=== PATIENT | male | born 1985 | race Caucasian/White ===

== ENCOUNTER 2017-11-28 09:06 | Emergency (ER) | payer OTHER, SELFPAY ==
[2017-11-28 09:07] VITALS: BP 155/105; PULSE 99; RESP 14; TEMP 36.3; O2SAT 95; BMI 38.8
--- NOTE | 2017-11-28 09:26 | ED.DCSUM_ITS ---
- ER Visit Summary Date of Service: 11/28/17 Chief Complaint: Suicidal History of Present Illness: The patient is a 32 M with worsening depression and anxiety over the past several months. Patient admits to having suicidal ideation for quite a while now. He has thoughts about driving off a bridge when he is driving, drowning in a pool, or taking a bottle pills. Patient states last week he actually sat on the edge of the pool but not jumping. He is having difficulty working because of his anxiety depression and went to see his primary care physician today about FMLA leave. He was sent to the ER by his PCP. Patient has been seeing a psychologist in [place] for the symptoms. He is not currently on any medication. Physical Examination: Blood pressure is 155/105, otherwise vitals normal. Patient standing at the side of the bed. Head neck examination is unremarkable. Heart is regular rate and rhythm. Lung sounds are clear. Abdomen is soft nontender. Psychiatric evaluation reveals depressed affect and suicidal thoughts. He has poor eye contact and speaks in a quiet voice. Test Results: CBC and chemistry studies are grossly unremarkable. His glucose is 153. Tox and EtOH are negative. Emergency Department Course and Treatment: Patient's been cooperative throughout his stay. Counselor from crisis center presented. After discussing the case with her we both have concerns about his impulsiveness and feel he would be much better served to be placed for inpatient treatment. Patient is given 1 mg of p.o. Ativan for anxiety. Treatment Plan: [] Disposition: Transfer Impression: Suicidal ideation This note was generated with [employer] dictation software. It may contain incorrect words, spelling, and punctuation that were not noted in review of the chart prior to signing ED Disposition - Plan for ED Patient: Chief Complaint: Suicidal
[2017-11-28 10:00] LABS: Absolute Lymphocyte Count 2.22 X10^3/ul (0.83-4.51); Absolute Neutrophil Count 4.9 X10^3/uL (2.0-7.7); Basophil# 0.05 X10^3/uL; Basophil% 0.6 % (0-1); Eosinophil# 0.15 X10^3/uL; Eosinophils% 1.9 % (0-5); Hematocrit 46.2 % (40-54); Hemoglobin 16.2 g/dl (13.0-16.5); Lymphocyte # 2.22 X10^3/ul (4.0); Lymphocyte % 28.8 % (19-41); Mean Corp Hgb Conc 35.1 g/gl (32-36); Mean Corpuscular Hgb 29.5 pg (27.0-32.0); Mean Platelet Vol. 9.7 fl (6.2-12.0); Monocyte# 0.42 X10^3/uL; Monocyte% 5.4 % (0-10); Neutrophil # 4.86 X10^3/uL (2.7-7.7); Neutrophil % 63.2 % (47-70); Platelet Count 227 K/mm3 (150-450); RBC Distribution Width CV 12.4 % (11.6-14.6); RBC Distribution Width SD 37.7 fl (35.1-43.9); White Blood Count 7.7 K/mm3 (4.4-11.0)
[2017-11-28 10:01] LABS: POSITIVE COUNT NO; POSITIVE DIFFERENTIAL NO; POSITIVE MORPHOLOGY NO
[2017-11-28 10:23] LABS: Anion Gap 5 (5-15); BUN 11 mg/dL (7-18); BUN/Creat Ratio 13.4 RATIO (10-20); Calcium,Total 9.1 mg/dL (8.5-10.1); Chloride 106 mmol/L (98-107); Creatinine, Serum 0.82 mg/dL (0.70-1.30); EST Glomerular Filtration Rate 116 mL/min (>60); Est Glom Filt Rate - Afr Amer 140 mL/min (>60); Estimated Creatinine Clearance 133.54 ml/min; Glucose 153 mg/dL (74-106); Potassium 4.2 mmol/L (3.5-5.1); Sodium Level 139 mmol/L (136-145)
[2017-11-28 10:35] LABS: Amphetamine Urine VISTA NEGATIVE (<1000 ng/mL); Barbiturate Urine VISTA NEGATIVE (< 200 ng/mL); Benzodiazepine Urine VISTA NEGATIVE (< 200 ng/mL); Cocaine Urine VISTA NEGATIVE (< 300 ng/mL); Ecstacy Urine VISTA NEGATIVE (< 500 ng/mL); Methadone Urine VISTA NEGATIVE (< 300 ng/mL); PCP Urine VISTA NEGATIVE (< 25 ng/mL); THC Urine VISTA NEGATIVE (< 50 ng/mL); Vista UDS pH Range 6
--- NOTE | 2017-11-28 10:52 | ED.RN ---
CALLED [facility] TO SEE PATIENT. [facility] INFORMED US THAT THEY ONLY HAVE ONE COUNSELOR ON TODAY AND SHE IS AT [facility]. SHE COULD NOT GIVE A TIME FRAME TO WHEN SOMEONE WOULD BE OVER.
[2017-11-28 14:55] VITALS: PULSE 89; RESP 18; O2SAT 96
[2017-11-28] MEDS: LORazepam 1 MG Tablet PO (15:32)
[2017-11-28 16:17] VITALS: BP 131/81; PULSE 88; RESP 14; O2SAT 96
--- NOTE | 2017-11-28 16:21 | ED.RN ---
FIRST ATTEMPT MADE TO CALL REPORT. TOLD TO CALL BACK DUE TO NURSE PASSING MEDS. Jose Miguel VAIL, RN [phone]
--- NOTE | 2017-11-28 16:39 | NURSING ---
[facility] CALLED FOR TRANSPORT. NOT AVAILABLE TILL 1999. PATIENT INFORMED AND FACILITY NOTIFIED. Jose Miguel VAIL RN.
[2017-11-28 17:42] VITALS: RESP 16
[2017-11-28 19:56] VITALS: BP 128/76; PULSE 80; RESP 16; O2SAT 98
== END 2017-11-28 19:57 ==
PROVIDERS: Emergency Provider Emergency Medicine; Family Provider Family Medicine; PCP Family Medicine
DX: R45.851 Suicidal ideations (principal); F32.9 Major depressive disorder, single episode, unspecified; F41.9 Anxiety disorder, unspecified; I10 Essential (primary) hypertension; E11.9 Type 2 diabetes mellitus without complications
CPT/HCPCS: 36415; 80048; 80307; 80320; 85025; 99284; G0480

== ENCOUNTER 2017-12-12 09:00 | Outpatient (RCR) | payer OTHER, SELFPAY ==
--- NOTE | 2017-12-12 09:05 | BH.SGPN.GN ---
Behaviors/Verbalizations/Mental Status: [Client maintained good eye contact throughout, mostly a passive, observatory participant however did well to provide some input to discussion. Client was casually dressed, appropriate grooming/hygiene. Motor activity WNL - some restless movement in chair - taking notes throughout session. Client speech was a normal rate and tone, mood anxious, depressed - expressed as feeling withdrawn, affect congruent with mood, thoughts linear and logical, no evidence of delusions or hallucinations. Therapist reviewed client?s symptom tracker to assess for intensity of mental health symptoms and identify risk for suicide. No signs of suicidal ideation, plan, or intent to date.] Client Response/Progress/Benefit: [Client receptive of session and did well to adjust to group environment. CLient was a passive participant in the group discussion as this was Client first day in IOP program and he was still getting used to the group setting. CLient did well to remain engaged throughout despite limited feedback to others AEB CLient taking notes throughout session and willingness to discuss what led to admission to IOP program as well as treatment goals/expectations. CLient indicated that he has been feeling increasingly anxious and withdrawn in his own life and is hoping to find strategies for improving his overall management of current mental health symptoms. CLient discussed recently beginning a new medication which he has been trying to adjust to. He benefited from the supportive group environment and encouragement provided by participants who indicated that if client is open minded and applies the skills he learns in group he will be able to begin seeing improvements in mental health sx. Client recommended continued IOP tx to maintain stability and begin working towards mental health treatment goals client is to identify. ] Narrative Note: []
--- NOTE | 2017-12-12 10:30 | BH.SGPN.GN ---
Behaviors/Verbalizations/Mental Status: []Client alert and oriented, neatly dressed and groomed. Eye contact fair. Motor activity appropriate. Speech quiet. Affect flat, mood anxious. Thoughts linear, logical, no signs of hallucinations or delusions. Client Response/Progress/Benefit: []Client responded well to session, quiet, but engaged as evidence by note-taking. Client reported one can have conflict with others or within oneself. Client nodded in agreement to barriers that prevent resolving conflict such as emotions, body language, and avoidance. Client helped the group discuss the four different conflict resolution styles including when it is helpful and not helpful to use each style. Client shared he uses the collaborating style at work, but he tends to be more accommodating in his personal relationships. Client reported the accommodating type has pros and cons, and one of the pros is client does not feel like his ideas and needs get heard. Client shared he would like to become more collaborative in his personal relationships. Client appeared to benefit from gaining awareness of how client?s current conflict resolution style impacts mental health and relationships. Client?s first day in PHP. Client to continue PHP to prevent decompensation, promote safety, and increase mood stability.
--- NOTE | 2017-12-12 11:35 | BH.SGPN.GN ---
Behaviors/Verbalizations/Mental Status: []Client alert and oriented, neatly dressed and groomed. Eye contact good. Motor activity appropriate. Speech within normal limits. Affect brighter- laughing and smiling with peers, mood depressed, anxious. Thoughts linear, logical, no signs of hallucinations or delusions. Client Response/Progress/Benefit: []Client responded well to session, more vocal and engaged than previous group session. Client participated in the group activity, passive at times, but sharing his thoughts and ideas in an assertive manner when prompted by therapist. Client stated listening to others, having fun, and problem-solving positively impacts conflict resolution. Client helped the group identify strategies to more effectively manage conflict such as managing stress, focusing on one problem at a time, and challenging negative self-talk. Client?s first day in PHP so no progress to document. Client to continue PHP to prevent decompensation, increase mood stability, and promote healthy coping skills.
--- NOTE | 2017-12-12 12:02 | BH.COMM ---
Communication Note - Communication with Client Communication Note: completed intial paperwork. No significant changes since pre-admission screening. Denies any suicidal ideations since last visit. No risk or concerns noted. Appears motivated to start PHP
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
--- NOTE | 2017-12-12 14:45 | BH.MDN ---
Multi-Disciplinary Note - Note 45-min Individual Time Started:: 12:31 Date: 12/12/17 Purpose of session/treatment goals addressed:: Purpose of session was to assess pt's current symptoms and stressors. Other topics included reviewing how first day of PHP went, gathering background information and identifying PHP treatment goals. Eye Contact:: Good Motor Activity:: Appropriate Appearance:: Casual Speech:: Appropriate Mood:: Anxious Affect:: Congruent Thoughts:: Linear, Logical, No evidence of hallucinations/delusions noted Staff Interventions:: Therapist used open ended questions to elicit pt's current symptoms and stressors. Therapist used probing questions to elicit background information. Therapist elicited pt's thoughts and feelings about program thus far. Worked collaboratively with pt to identify treatment goals for PHP. Psychoeducation provided about cognitive triangle, helping pt understand connection between thoughts, feelings, and behavior. Provided pt with homework to keep a thought log throughout rest of day. Client Response:: Pt reported he was anxious throughout his first day in PHP, but overall thought the day wasn't as bad as expected. Pt shared he believes it will become easier to participate as he becomes comfortable with others. Pt reported he started the PHP program after being referred by the inpatient hospital he went to due to suicidal ideation. Pt shared he noticed his mental health symptoms were worsening in April after interpersonal relationship issues. Pt reported his anxiety and depression increased and was started to struggle in other areas of his life. Pt shared end of October he went to his PCP for medication refill and to receive a leave of absence from work because work was overwhelming and he couldn't complete his basic daily responsibilities. Pt shared during the appointment with his PCP inpatient hospitalization was recommended due to increased suicidal thoughts at the time. Pt reported he went to [place] that day and was referred to this program after his inpatient stay. Pt shared since being out of inpatient he is no longer feeling suicidal, still experiencing high anxiety and moderate depressive symptoms. Pt reported he is working with his outpatient counselor on childhood trauma through EMDR therapy. Pt shared he would like to focus on increasing his healthy coping for both depression and anxiety. Pt shared he also would find it helpful to have education about impact of trauma. Pt agreeable to complete thought log throughout rest of day. Risks/Concerns:: Pt currently denies suicidal ideation, plan or intention to date. Future-focused. Progress Toward Goals/Plan:: No progress observed given it is pt's first day in PHP. Session focused on gathering backgroud information and establishing goals for PHP. Plan is to meet tomorrow to review assigned homework and practice thought challenge. Time Stopped:: 13:17
--- NOTE | 2017-12-13 10:20 | BH.SGPN.GN ---
Behaviors/Verbalizations/Mental Status: [] Pt eye contact good, casually dressed, motor activity appropriate, speech normal rate and tone, mood euthymic, congruent affect, thoughts linear and intact, no evidence of delusions or hallucinations. Client Response/Progress/Benefit: []Pt tended to be quiet during initial discussion, showed increased engagement when discussing current stressors. Pt identified current stressors to include: mental health issues, side effects from medications, living situation, work problems, interpersonal problems, and adjusting to new medications. Pt reported when he becomes overwhelmed with stress he tends to implode, which he described as increased negative thinking towards self. Pt seemed to benefit from increased awareness of current stressors and how current response to stress negatively impacts his functioning. Narrative Note: []
--- NOTE | 2017-12-13 21:10 | BH.MDN_ITS ---
Multi-Disciplinary Note - Note 45-min Individual Time Started:: 12:35 Date: 12/13/17 Purpose of session/treatment goals addressed:: Purpose of session was to assess pt's current symptoms and stressors. Other topics included: reviewing homework, reframing negative/anxious thoughts, and education on cognitive distortions. Eye Contact:: Good Motor Activity:: Appropriate Appearance:: Casual Speech:: Appropriate Mood:: Anxious Affect:: Congruent Thoughts:: Linear, Logical, No evidence of hallucinations/delusions noted Staff Interventions:: Therapist used open ended questions to elicit pt's current symptoms and stressors. Therapist reviewed pt's homework from previous group session. Therapist assisted pt with reframing negative thoughts, helping pt see connection between thoughts, feelings and behavior. Therapist provided psychoeducation about cognitive distortions, explaining impact distorted thought patterns can have on mental health. Therapist provided pt with worksheet about identifying physical, cognitive and behavioral impact of anxiety for homework. Provided support by active listening and validating emotions. Client Response:: Pt reported yesterday he took a nap after group because believes his new medication is making him more groggy. Pt shared after his nap he went to the store and bought painting supplies so he can paint his room. Pt reported he is excited to paint his room so he has a more relaxing space of his own. Pt completed his homework of keeping a thought log. Pt shared one of his negative thoughts to be I'm an idiot for taking on this paint project it was too much. With assistance pt reframed the thought to if I break up the paint project into manageable parts it will actually give me something positive to do each day. Pt shared another negative thought he had was I'm never going to get back to my normal self. Pt reframed to his thought to I'm uncertain if I will get back to my normal self. Pt shared although the new thought didn't take away his feeling of anxiety, he recognizes by removing the word never does give him more hope. Pt also connected with the 10 different cognitive distortions reviewed during session. With assistance pt connected in the 3 thoughts he trac ked he used several of the distorted thoughts. Pt agreeable to complete homework of getting to know his anxiety better. Risks/Concerns:: Pt denies suicidal thoughts, plan or intention to date. Future focused. Progress Toward Goals/Plan:: Pt showing progress with increased awareness of his negative thought patterns and following through on identified goals. Pt continuing to report not having any suicidal thoughts. Pt continuing to experience high anxiety, but showing increased awareness of how his thought patterns can exasperate his symptoms. Pt to continue PHP level of care to stabilize moods, improve daily functioning, and prevent decompensation. Time Stopped:: 13:15
--- NOTE | 2017-12-14 09:00 | BH.SGPN.GN ---
Behaviors/Verbalizations/Mental Status: [] Alert and oriented. Eye contact is good. Motor activity is appropriate. Appearance is casual. Speech is appropriate. Mood is anxious. Affect is congruent. Thoughts are linear and logical. No hallucination or delusions noted. Client Response/Progress/Benefit: [] Pt was quiet unless prompted. Shared with the group that his emotion today was anxious. No trigger reported stating that his anxiety is constant. He described learning recently about cognitive distortions and CBT therapy and is hopeful that he will learn better ways to combat his negative thoughts which are continues throughout the day. Group provided support and offered some suggestions and strategies. He discussed how this anxiety effects his daily functioning. Benefited from support and feedback from peers. Appears to relate to other in the group which decreases stigma associated with recent psychiatric hospitalization. Progress noted in regards to awareness. Will continue in PHP to maintain safety, improve functioning, and stabilize mood. Narrative Note: []
--- NOTE | 2017-12-14 10:15 | BH.SGPN.GN ---
Behaviors/Verbalizations/Mental Status: []Client alert and oriented, neatly dressed and groomed. Eye contact fair. Motor activity appropriate. Speech within normal limits. Affect constricted, mood anxious. Thoughts linear, logical, no signs of hallucinations or delusions. Client Response/Progress/Benefit: []client responded well to session, passive participant. Client listened to discussion of how emotions impact how a person manages change. Client agreed with peers through nodding, that emotions such as anger, stress, and anxiety can lead to avoidance of change. Client appeared to benefit from gaining awareness of how emotions can either promote change or hinder change. Progress noted in client?s increased mental health awareness, but he can continue to benefit from increasing application of healthy coping skills.
--- NOTE | 2017-12-14 11:20 | BH.SGPN.GN ---
Behaviors/Verbalizations/Mental Status: []Client alert and oriented, neatly dressed and groomed. Eye contact good. Motor activity appropriate. Speech within normal limits. Affect constricted, mood anxious. Thoughts linear, logical, no signs of hallucinations or delusions. Client Response/Progress/Benefit: []Client responded well to session, engaged throughout. Client participating in the group activity, sharing ?you have to be realistic with your goals? when taking steps to change. The group identified learning from mistakes and reaching out to supports as strategies to improve the change process and overcome change barriers. Client shared he has experienced positive change in the past and knows he can again. ?Client identified improving his personal relationships as a positive change he wants to make. Client appeared to benefit from setting a goal to help client make positive change. Client to continue IOP to increase mood stability and prevent decompensation.
--- NOTE | 2017-12-15 10:10 | BH.SGPN.GN ---
Behaviors/Verbalizations/Mental Status: [] Pt eye contact good, casually dressed, motor activity appropriate, speech normal rate and tone, mood euthymic, congruent affect, thoughts linear and intact, no evidence of delusions or hallucinations. Client Response/Progress/Benefit: [] Client active spent as evidenced by any contribution throughout discussion and attentive to others. Client could relate to the that there are things he does that contributes to him feeling stuck and not moving forward. Client stated although he cannot identify external situations that are not in his control which have impacted his progress as well. Client identified various thoughts that contribute to him staying stuck to include: I am not intelligent enough to solve problems, I am not interesting enough, and I should have more interesting things I do. Client seemed to benefit from increased awareness of cognitive triangle as well as connecting how his own thoughts impact his ability to move forward. Narrative Note: []
--- NOTE | 2017-12-15 11:10 | BH.SGPN.GN ---
Behaviors/Verbalizations/Mental Status: [] Pt eye contact good, casually dressed, motor activity appropriate, speech normal rate and tone, mood euthymic, congruent affect, thoughts linear and intact, no evidence of delusions or hallucinations. Client Response/Progress/Benefit: [] Client engaged and active throughout group session as evidenced by completing the worksheet together throughout group session and contributing to discussion. Client identified the thought for the worksheet to focus on was I am not intelligent enough to solve her own problems. Client reported that this thought is unrealistic because he can recognize there is evidence contrary to that statement. Client reported this thought with to isolation and shut down, and ultimately this thought results and not working on his problems and no contact with support network. Client able to reframe thought to I am smart enough to break my problems into smaller manageable parts. Client reported by reframing his negative thought to more positive and optimistic thought would lead to decrease isolation, increased hopefulness, increased self worth and increase self-esteem. Client seemed to benefit from practicing reframing and negative thought and seeing the positive impact challenging negative thoughts can have. Narrative Note: []
--- NOTE | 2017-12-15 14:19 | BH.MDN_ITS ---
Multi-Disciplinary Note - Note 30-min Individual Time Started:: 12:30 Date: 12/14/17 Purpose of session/treatment goals addressed:: Purpose of session was to assess current symptoms and stressors. Other topcis: review homework from previous session and brief discussion about common types of anxious thoughts. Eye Contact:: Good Motor Activity:: Appropriate Appearance:: Casual Speech:: Appropriate Mood:: Anxious Affect:: Congruent Thoughts:: Linear, Logical, No evidence of hallucinations/delusions noted Staff Interventions:: Therapist utilized open ended questions to elicit pt's current symptoms and stressors. Therapist reviewed pt's homework from previous indicidual session. Therapist provided psychoeducation about importance of having awareness of physiological response to anxiety. Therapist provided pt with homework to read about common types of anxiety. Client Response:: Pt reported he is feeling more comfortable in group and has improved energy today. Pt shared he was able to complete the homework of how he experiences anxiety physiologically, cognitively, and behaviorally. Pt reported he found it helpful to gain awareness of how his anxiety impacts him and have the language to be able to describe his experience more effectively. Pt reported he was able to complete his goal for the day yesterday of continuing to work on his paint project for his room. Pt shared he recognizes the importance of setting small, manageable goals to make his project not become overwhelming. Pt agreeable to complete the worksheet for homework. Risks/Concerns:: Pt denies currently suicidal ideation, plan or intention to date. Progress Toward Goals/Plan:: Pt demonstrating progress with increased self- awareness of his anxious thought patterns and improved awareness of how his anxiety is impacting his functioning. Pt also showing progress with identifying and following through with identified daily goals. Pt continuing to maintain safety and report no suicidal thoughts. Pt to continue PHP level of care to maintain gains, improve daily functioning, and prevent decompensation. Time Stopped:: 13:05
--- NOTE | 2017-12-15 14:19 | BH.MDN ---
Multi-Disciplinary Note - Note 45-min Individual Time Started:: 12:15 Date: 12/15/17 Purpose of session/treatment goals addressed:: Purpose of session was to assess pt's current symptoms and stressors. Other topics included: reviewed homework, safety plan, tentative plan for PHP discharge. Eye Contact:: Good Motor Activity:: Appropriate Appearance:: Casual Speech:: Appropriate Mood:: Anxious Affect:: Congruent Thoughts:: Linear, Logical, No evidence of hallucinations/delusions noted Staff Interventions:: Therapist used open ended questions to elicit pt's current symptoms and stressors. Therapist reviewed pt's homework assignment from previous individual session. Therapist worked with pt to complete safety plan. Therapist elicited pt's thoughts about progress since starting PHP, discussed tentative discharge plan. Client Response:: Client reported he is feeling a bit overwhelmed because he has to complete a lot of paperwork for his insurance and wants to continue to move forward with his paint project. Client shared he does not think he got enough done for his pain project yesterday which results in increased negative thinking and anxious thoughts that he took on too much at once. Client able to reframe thought, using the reframe thought created during individual session yesterday. Client completed the assigned homework of reading about common anxious thought patterns. Client connected with the what if's and inner critic thoughts. Client able to identify several what of thoughts and recognized his thoughts from today's group session fall under the inner critic. Client could connect the impact is anxious thought patterns have on his behavior and emotions. Client worked cooperatively with therapist to start completing his safety plan. Client identified his main warning signs that he is starting to struggle to include feeling guilt, fear, and extreme worry. Client identified coping skills to help him include humor, doing something else, coloring, and prayer. Client reported positive thoughts that can help him get through tough times include remind himself this will pass and remind himself that he is gone through to situations in the past. Client reported he has seen progress in himself with increased self awareness, completing small tasks daily, and continuing to not feel suicidal. Client agreeable his last day in partial hospitalization to be tomorrow. Client reported he will start IOP on Tuesday of next week. Risks/Concerns:: Patient denies current suicidal thoughts, plan, or intention. Future focused. Progress Toward Goals/Plan:: Client has demonstrating progress with increased awareness of negative and anxious thought patterns, improved ability to reframe negative thoughts, and completing small goals established each day. Client has been able to maintain safety, reports not experiencing any suicidal thoughts, and has improved mood stability. Plan is for client to discharge from [facility] tomorrow. Client will start IOP level of care on Tuesday of next week. Time Stopped:: 13:05
--- NOTE | 2017-12-16 09:10 | BH.SGPN.GN ---
Behaviors/Verbalizations/Mental Status: []Client alert and oriented, neatly dressed and groomed. Eye contact good. Motor activity appropriate. Speech within normal limits. Affect congruent, mood anxious, euthymic. Thoughts linear, logical, no signs of hallucinations or delusions. Reviewed client?s symptom tracker, client marked 1 out of 5 for thoughts of suicide and 0 out 5 for intent. Therapist to communicate this with client's individual therapist. Client Response/Progress/Benefit: []Client responded well to session, providing supportive statements to peers. Client reports feeling ?conflicted? today as client is hopeful based on the progress he has made, but client continues to struggle with managing stressors and feeling overwhelmed. Client shared receiving a rejection letter from his insurance company as a major stressor. Client stated he has been challenging the anxious, negative thoughts with his [facility] therapist which has been helpful. Client was also receptive to ideas from peers on ways to manage stress. Client identified accessing his email and getting caught up on work stuff as a current positive. Client appeared to benefit from giving and receiving support in the group. Client to discharge from [facility] today as he has made progress and no longer meets criteria for that level of care. Client to start [facility] 12/19/17.
--- NOTE | 2017-12-16 12:44 | PCM.HP.BLA ---
History and Physical Identifying information Patient is a 32-year-old male status post recent inpatient psychiatric hospitalization with new diagnosis bipolar disorder who presents to the behavioral medicine [facility] with chief complaint of recent mood instability and thoughts of harming myself. History is been obtained per interview with patient, discussion with staff, review of chart. Records reviewed including November 28, 2017 history and physical from [facility] and discharge medication summary from [facility]. Case discussed with treatment team History of present illness Patient is a 32-year old male status post recent inpatient psychiatric hospitalization November 29 - December 05 at [facility] for hypomania with suicidal ideation. Patient was newly diagnosed with bipolar disorder during his inpatient hospitalization. He describes history consistent with mixed mood symptoms and mood cycling. April - August 2017 he reports mixed mood symptoms with depression, sleep disruption and productivity. In August he began having personal relationship problemswhich he further believes exacerbated his symptoms. He reports between August and November he was hypomanic with feeling amped up, increased energy, increased productivity, getting a lot of things done, sleeping only 5 hours reduced from his normal 7-8 hours, impulsive behavior including spending and dating websites, narcissistic thoughts and irritability. Prior to his hospitalization he had increased depression with guilt, hopelessness, feelings of worthlessness and suicidal thoughts. He reports thoughts of drowning or overdosing. He has had only one fleeting suicidal thoughts since discharge from the hospital lasting less than 1 minute. He denies suicide plan or intent. Denies access to firearms. Feels able to maintain safety. Denies homicidal ideation. Denies hallucinations. Reports that he is currently sleeping 7-8 hours and that Abilify has assisted with sleep. Appetite is mildly increased. He endorses ruminative anxiety about multiple issues. He has panic attacks in social situations which she has shortness of breath heart palpitations and diaphoresis. His last panic attack was prior to his hospitalization. He denies obsessions or compulsions. Denies history of disordered eating. 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 Past psychiatric history Recent diagnosis bipolar disorder. Previous diagnosis of anxiety and PTSD. One psychiatric inpatient hospitalization at [facility] from November 29 - December 05 as noted above. Currently sees Preethi Garcia at [facility]. Reports trial of Risperdal as a teen for anxiety. Substance use history Consumes 2 alcoholic drinks per week. Denies illicit drug use. Denies smoking. 2 cups of caffeinated coffee daily. Past medical history Irx-eyaubcy-ippshecox diabetes Denies history of seizure or head injury Review of systems Reports some congestion likely due to seasonal allergies. No fevers chills chest pain or dyspnea. All other systems reviewed and negative except as above. Allergies-no known medical allergies Current medications Metformin Lisinopril Abilify 20 mg daily Family medical psychiatric history Father-bipolar disorder Maternal grandmother-schizophrenia Paternal grandfather alcohol use Developmental social history Patient was born and raised in [facility]. He is the eldest of 2 children. 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 States that growing up was difficult as his father had untreated bipolar disorder and was unpredictable. Graduated high school. Attended community college and obtained an associates in [employer] science. 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 Lives with parents in [place]. Relationship with father has improved as father is now compliant with treatment. Sister is and lives in [place]. Legal history none Mental status exam Vital signs reviewed per nursing database and discussed with nursing. Alert and oriented . No acute distress. Ambulatory with normal gait and station. Appears stated age. Casually dressed and groomed. Appropriate hygiene. Cooperative with interview. Good eye contact. No psychomotor agitation or retardation. Mood depressed. Affect congruent. Speech is clear and with regular rate and rhythm. Language fluent. Thought process organized. Associations logical. Thought content significant for ruminative anxiety and themes of depression. Single fleeting suicidal thought lasting less than 1 minute few days ago. No current suicidal or homicidal ideation related or detected. No symptoms consistent with psychosis noted or detected. Immediate recent and remote memory grossly intact. Attention and concentration are fair. Estimated intelligence and fund of knowledge average. Judgment and insight fair. Physical exam reviewed per history and physical from [facility]. Agree with findings. Labs and testing Lab work will be requested from recent inpatient hospitalization. Further lab work will be obtained as needed. Diagnosis Bipolar 1 disorder F 31.9 Anxiety PTSD Plan Patient initially admitted to [facility] as the structured setting was necessary to prevent decompensation and rehospitalization. Patient has made gains in [facility] and is appropriate for discharge from [facility] and admission to [facility]. Risk-benefit alternative of medications discussed with patient. Patient acknowledges understanding. Continue Abilify 20 mg p.o. daily. No evidence of EPS. Encouraged to establish follow-up with outpatient psychiatric providers for when IOP complete. Recommended reading calm seas. Patient acknowledges understanding and is in agreement with plan. Feels able to maintain safety. Agrees to seek help or emergency care if feeling unsafe to self or others.
--- NOTE | 2017-12-16 12:59 | HP.PCM_ITS ---
History and Physical Identifying information Patient is a 32-year-old male status post recent inpatient psychiatric hospitalization with new diagnosis bipolar disorder who presents to the behavioral medicine [facility] with chief complaint of recent mood instability and thoughts of harming myself. History is been obtained per interview with patient, discussion with staff, review of chart. Records reviewed including November 28, 2017 history and physical from [facility] and discharge medication summary from [facility]. Case discussed with treatment team History of present illness Patient is a 32-year old male status post recent inpatient psychiatric hospitalization November 29 - December 05 at [facility] for hypomania with suicidal ideation. Patient was newly diagnosed with bipolar disorder during his inpatient hospitalization. He describes history consistent with mixed mood symptoms and mood cycling. April - August 2017 he reports mixed mood symptoms with depression, sleep disruption and productivity. In August he began having personal relationship problemswhich he further believes exacerbated his symptoms. He reports between August and November he was hypomanic with feeling amped up, increased energy, increased productivity, getting a lot of things done, sleeping only 5 hours reduced from his normal 7-8 hours, impulsive behavior including spending and dating websites, narcissistic thoughts and irritability. Prior to his hospitalization he had increased depression with guilt, hopelessness, feelings of worthlessness and suicidal thoughts. He reports thoughts of drowning or overdosing. He has had only one fleeting suicidal thoughts since discharge from the hospital lasting less than 1 minute. He denies suicide plan or intent. Denies access to firearms. Feels able to maintain safety. Denies homicidal ideation. Denies hallucinations. Reports that he is currently sleeping 7-8 hours and that Abilify has assisted with sleep. Appetite is mildly increased. He endorses ruminative anxiety about multiple issues. He has panic attacks in social situations which she has shortness of breath heart palpitations and diaphoresis. His last panic attack was prior to his hospitalization. He denies obsessions or compulsions. Denies history of disordered eating. 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 Past psychiatric history Recent diagnosis bipolar disorder. Previous diagnosis of anxiety and PTSD. One psychiatric inpatient hospitalization at [facility] from November 29 - December 05 as noted above. Currently sees Preethi Garcia at [facility]. Reports trial of Risperdal as a teen for anxiety. Substance use history Consumes 2 alcoholic drinks per week. Denies illicit drug use. Denies smoking. 2 cups of caffeinated coffee daily. Past medical history Dak-ycycioj-ppgonnzor diabetes Denies history of seizure or head injury Review of systems Reports some congestion likely due to seasonal allergies. No fevers chills chest pain or dyspnea. All other systems reviewed and negative except as above. Allergies-no known medical allergies Current medications Metformin Lisinopril Abilify 20 mg daily Family medical psychiatric history Father-bipolar disorder Maternal grandmother-schizophrenia Paternal grandfather alcohol use Developmental social history Patient was born and raised in [facility] [place]. He is the eldest of 2 children. 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 States that growing up was difficult as his father had untreated bipolar disorder and was unpredictable. Graduated high school. Attended community college and obtained an associates in [employer] science. 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 Lives with parents in [place]. Relationship with father has improved as father is now compliant with treatment. Sister is and lives in [place]. Legal history none Mental status exam Vital signs reviewed per nursing database and discussed with nursing. Alert and oriented . No acute distress. Ambulatory with normal gait and station. Appears stated age. Casually dressed and groomed. Appropriate hygiene. Cooperative with interview. Good eye contact. No psychomotor agitation or retardation. Mood depressed. Affect congruent. Speech is clear and with regular rate and rhythm. Language fluent. Thought process organized. Associations logical. Thought content significant for ruminative anxiety and themes of depression. Single fleeting suicidal thought lasting less than 1 minute few days ago. No current suicidal or homicidal ideation related or detected. No symptoms consistent with psychosis noted or detected. Immediate recent and remote memory grossly intact. Attention and concentration are fair. Estimated intelligence and fund of knowledge average. Judgment and insight fair. Physical exam reviewed per history and physical from [facility]. Agree with findings. Labs and testing Lab work will be requested from recent inpatient hospitalization. Further lab work will be obtained as needed. Diagnosis Bipolar 1 disorder F 31.9 Anxiety PTSD Plan Patient initially admitted to [facility] as the structured setting was necessary to prevent decompensation and rehospitalization. Patient has made gains in [facility] and is appropriate for discharge from [facility] and admission to [facility]. Risk-benefit alternative of medications discussed with patient. Patient acknowledges understanding. Continue Abilify 20 mg p.o. daily. No evidence of EPS. Encouraged to establish follow-up with outpatient psychiatric providers for when IOP complete. Recommended reading calm seas. Patient acknowledges understanding and is in agreement with plan. Feels able to maintain safety. Agrees to seek help or emergency care if feeling unsafe to self or others.
--- NOTE | 2017-12-16 12:59 | BH.DR.ITP ---
Initial Treatment Plan - Patient Information Visit Information: ADMISSION DATE: EXPECTED LOS: 4-6 weeks Diagnoses:: Bipolar disorder F 31.9 - Problems/Symptoms Problem #1:: Mood instability Symptom:: Dysphoric purnima, biologic disruption of sleep and appetite, suicidal ideation Problem #2:: Anxiety Symptom:: Rumination, intrusive traumatic memories
--- NOTE | 2017-12-16 13:01 | BH.DR.ITP ---
Initial Treatment Plan - Patient Information Visit Information: ADMISSION DATE: EXPECTED LOS: 4-6 weeks Diagnoses:: Bipolar disorder F 31.9 - Problems/Symptoms Problem #1:: Mood instability Symptom:: Depression, decreased energy, recent suicidal ideation, biologic disruption sleep and appetite Problem #2:: Anxiety Symptom:: Rumination
--- NOTE | 2017-12-16 14:37 | BH.MDN ---
Multi-Disciplinary Note - Note 30-min Individual Time Started:: 12:26 Date: 12/16/17 Purpose of session/treatment goals addressed:: Purpose of session was to assess current symptoms and stressors. Other topics included: homework review, completing safety plan, identifying goal for weekend, and identifying progress since starting PHP. Eye Contact:: Good Motor Activity:: Appropriate Appearance:: Casual Speech:: Appropriate Mood:: Anxious Affect:: Congruent Thoughts:: Linear, Logical, No evidence of hallucinations/delusions noted Staff Interventions:: Therapist utilized open ended questions to elicit pt's current symptoms and stressors. Therapist asked about pt's homework from last individual session and disucssed barriers to completing homework. Therapist assisted pt with completing safety plan. Helped pt with identifying support that finds helpful and what does not find helpful and providing numbers for local crisis and national suicide hotline. Therapist collaborated with pt to identify SMART goal for the weekend. Elicited pt's thoughts about progress since starting PHP and plan for discharge. Client Response:: Pt reported he did not complete the assigned homework due to not having enough time after leaving [facility]. Pt shared he was able to get majority of the taping complete for his paint project in his room. Pt reported he also completed all the paperwork for his work insurance which he shared is a relief to have that done. Pt shared he also went to his voodoo service reported it was not very helpful because felt anxious that others don't understand his situation with mental health problems. Pt reported he does have a couple friends at voodoo that do understand his situation and are supportive. Pt recognizes it will be important to not push away his supports and wants to learn more about his diagnoses so he can educate others. When completing the safety plan pt reported what most helps him from his supports is to be validated, respected and empathy to be shown. Pt shared what doesn't help him when in a crisis is when others are judgemental, disrespectful, and minimize his experience. Pt reported he has had supports in the past that minimized his experience which made him feel worse. Pt able to identify several people he can call if need a distraction or to talk with about his symptoms and crisis situation. Pt reported if he feels unsafe he will lock his over the counter medication and give the raya to someone else. Pt shared his SMART goal for the weekend is to finish the painting in his bedroom by completing the taping then putting the paint on. Pt stated he believes this is a realistic goal. Pt reported he has noticed progress since starting PHP with decreased anxiety, improved awareness of his anxious thoughts and improved ability to cope with his anxiety. Pt agreed he is ready to discharge from [facility] level of care and start IOP next week. Risks/Concerns:: Pt denies current thoughts of suicide, plan or intention. Future focused. Progress Toward Goals/Plan:: Pt has shown progress with improved mood stability, increased awareness of coping with ability to challenge anxious thoughts, and decrease in anxious symptoms. Pt continuing to become overwhelmed quickly which results in not being able to complete tasks. Pt is working on setting smaller goals to help him follow through with tasks and responsibilites. Pt verbalizes the thought of returning to work is anxiety provoking due to his difficulty concentrating, shutting down when anxious, and challenges with problem solving. Pt has made progress and no longer meets criteria for [facility] level of care. Pt will start IOP level of care next week. Time Stopped:: 12:58
--- NOTE | 2017-12-16 16:30 | BH.DS ---
Discharge Summary - Demographics Date of Admission:: 12/12/17 Discharge Date: 12/16/17 Presenting Problems at Admission:: Pt referred by [facility] post recent inpatient psychiatric hospitalization November 29 - December 05 for hypomania with suicidal ideation. Patient was newly diagnosed with bipolar disorder during his inpatient hospitalization. Pt reports prior to hospitalization he went to his PCP to get medical leave from work for depression and anxiety, PCP sent pt to emergency department because concerned about pt's ability to maintain safety. Prior to hospitalization pt had increased depression with guilt, hopelessness, feelings of worthlessness and suicidal thoughts. Pt reported appetite is mildly increased. He endorsed ruminative anxiety about multiple issues. Panic attacks in social situations in which has shortness of breath heart palpitations. Discharge Diagnoses:: F31.9 Bipolar 1 disorder. Anxiety. PTSD Reason for Discharge:: Pt has made progress on his treatment goals while in PHP, has maintained safety, and reported improved mood stability. Pt no longer meets medical necessity for [facility] level of care. - Treatment Progress During Treatment & Response: Pt has shown progress with improved mood stability, increased awareness of coping with ability to challenge anxious thoughts, and decrease in anxious symptoms. Pt has maintained safety and since discharge from inpatient reports only one passive thought of with no plan or intention. Pt has responded well to group and individual sessions AEB contributing during group discussion, engaging in activities, and completing assigned homework from individual sessions. Issues Still to be Addressed:: Pt continuing to become overwhelmed quickly which results in not being able to complete tasks. Pt is working on setting smaller goals to help him follow through with tasks and responsibilites; needs additional practice. Pt verbalizes the thought of returning to work is anxiety provoking due to his difficulty concentrating, shutting down when anxious, and challenges with problem solving. Pt could benefit from continued work with identifying and challenging distorted and anxious thought patterns. Pt could benefit from learning healthy coping skills to assist with managing moods. Discharge Recommendations/Instructions:: Pt recommended to start IOP level of care to reinforce healthy skills learned during PHP and continue to build skills and strategies to help pt return to baseline level of functioning. Discharge Handout: Complete Discharge Handout with client on aftercare options and continuity of care.
--- NOTE | 2017-12-17 13:14 | BH.MDN_ITS ---
Multi-Disciplinary Note - Note 30-min Individual Time Started:: 12:26 Date: 12/16/17 Purpose of session/treatment goals addressed:: Purpose of session was to assess current symptoms and stressors. Other topics included: homework review, completing safety plan, identifying goal for weekend, and identifying progress since starting PHP. Eye Contact:: Good Motor Activity:: Appropriate Appearance:: Casual Speech:: Appropriate Mood:: Anxious Affect:: Congruent Thoughts:: Linear, Logical, No evidence of hallucinations/delusions noted Staff Interventions:: Therapist utilized open ended questions to elicit pt's current symptoms and stressors. Therapist asked about pt's homework from last individual session and disucssed barriers to completing homework. Therapist assisted pt with completing safety plan. Helped pt with identifying support that finds helpful and what does not find helpful and providing numbers for local crisis and national suicide hotline. Therapist collaborated with pt to identify SMART goal for the weekend. Elicited pt's thoughts about progress since starting PHP and plan for discharge. Client Response:: Pt reported he did not complete the assigned homework due to not having enough time after leaving [facility]. Pt shared he was able to get majority of the taping complete for his paint project in his room. Pt reported he also completed all the paperwork for his work insurance which he shared is a relief to have that done. Pt shared he also went to his restorationism service reported it was not very helpful because felt anxious that others don't understand his situation with mental health problems. Pt reported he does have a couple friends at restorationism that do understand his situation and are supportive. Pt recognizes it will be important to not push away his supports and wants to learn more about his diagnoses so he can educate others. When completing the safety plan pt reported what most helps him from his supports is to be validated, respected and empathy to be shown. Pt shared what doesn't help him when in a crisis is when others are judgemental, disrespectful, and minimize his experience. Pt reported he has had supports in the past that minimized his experience which made him feel worse. Pt able to identify several people he can call if need a distraction or to talk with about his symptoms and crisis situation. Pt reported if he feels unsafe he will lock his over the counter medication and give the raya to someone else. Pt shared his SMART goal for the weekend is to finish the painting in his bedroom by completing the taping then putting the paint on. Pt stated he believes this is a realistic goal. Pt reported he has noticed progress since starting PHP with decreased anxiety, improved awareness of his anxious thoughts and improved ability to cope with his anxiety. Pt agreed he is ready to discharge from [facility] level of care and start IOP next week. Risks/Concerns:: Pt denies current thoughts of suicide, plan or intention. Future focused. Progress Toward Goals/Plan:: Pt has shown progress with improved mood stability, increased awareness of coping with ability to challenge anxious thoughts, and decrease in anxious symptoms. Pt continuing to become overwhelmed quickly which results in not being able to complete tasks. Pt is working on setting smaller goals to help him follow through with tasks and responsibilites. Pt verbalizes the thought of returning to work is anxiety provoking due to his difficulty concentrating, shutting down when anxious, and challenges with problem solving. Pt has made progress and no longer meets criteria for [facility] level of care. Pt will start IOP level of care next week. Time Stopped:: 12:58
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
--- NOTE | 2017-12-18 12:26 | BH.MTP_ITS ---
Master Treatment Plan - Patient Information Program Physician:: Dr. Watson Primary Therapist:: Jena Mcbride, [facility] - Psychiatric Diagnoses Psychiatric Diagnoses:: Bipolar 1 disorder. Anxiety. PTSD Diagnosis Code(s):: F 31.9 - Estimated LOS Estimated LOS (in weeks):: 1 Problem/Goal #1 - Problem/Goal #1 Stated Goal:: Client will increase mood stability and suicidal thinking due to Bipolar I disorder through Intensive Outpatient Program. Description of Barriers: Pt's distorted thought patterns, low self-confidence, anxious symptoms, isolative behaviors, and not being able to work or complete basic home tasks/responsibilties are potential barriers to treatment. Functional Impact: Pt discharged from inpatient psychiatric hosptial on December 05 due to mood instablity and suicidal ideation. Pt has taken a leave of absence from work due to mental health symptoms, reported he struggles with concentrating, freezing when anxious, and not being able to complete many tasks. Pt also having interpersonal relationship issues which have exasperated pt's mental health symptoms. Goal Relevant Strengths/Supports: Pt is intelligent, resilient, and verbalizes motivation to get better. Pt reports have serveral spiritual advisors that are supportive. - Objectives Objective #1 Stated Objective: Client will work with therapist to develop a ?crisis plan? which includes emergency telephone numbers, 3-4 coping strategies for SI, lists of supports, positive aspects of life, and motivations. Interventions: Therapist will provide patient with safety plan worksheet and work with pt. to develop individualized plan. Discharge Criteria: Goal will have been met when pt has completely filled out safety/crisis plan. Target Date: 12/16/17 Objective #2 Stated Objective: Client will learn and utilize 2-3 healthy coping strategies to manage depressive symptoms. Interventions: Therapist will assist client in learning internal coping strategies to manage depressive symptoms, along with helping client identify triggers. Discharge Criteria: Client will have achieved this goal when can verbalize and has practiced at least 2 healthy coping strategies. Target Date: 12/16/17 Problem/Goal #2 - Problem/Goal #2 Stated Goal:: Reduce overall frequency, intensity, and duration of the anxiety so that daily functioning is not impaired. Description of Barriers: Pt's distorted thought patterns, low self-confidence, anxious symptoms, isolative behaviors, and not being able to work or complete basic home tasks/responsibilties are potential barriers to treatment. Functional Impact: Pt discharged from inpatient psychiatric hosptial on December 05 due to mood instablity and suicidal ideation. Pt has taken a leave of absence from work due to mental health symptoms, reported he struggles with concentrating, freezing when anxious, and not being able to complete many tasks. Pt also having interpersonal relationship issues which have exasperated pt's mental health symptoms. Goal Relevant Strengths/Supports: Pt is intelligent, resilient, and verbalizes motivation to get better. Pt reports have serveral spiritual advisors that are supportive. - Objectives Objective #1 Stated Objective: Client will identify 2-3 anxious thinking patterns and be able to challenge and replace those thoughts. Interventions: Therapist will explore and educate client about cognitive distortions that trigger anxious mood. Therapist will assist client in identifying strategies to challenge and defeat those thinking patterns. Discharge Criteria: Client will have met this goal when can identify at least 2 anxious thinking patterns and reframe anxious thoughts to realistic, positive thoughts. Target Date: 12/16/17
--- NOTE | 2017-12-19 07:56 | BH.DS_ITS ---
Discharge Summary - Demographics Date of Admission:: 12/12/17 Discharge Date: 12/16/17 Presenting Problems at Admission:: Pt referred by [facility] post recent inpatient psychiatric hospitalization November 29 - December 05 for hypomania with suicidal ideation. Patient was newly diagnosed with bipolar disorder during his inpatient hospitalization. Pt reports prior to hospitalization he went to his PCP to get medical leave from work for depression and anxiety, PCP sent pt to emergency department because concerned about pt's ability to maintain safety. Prior to hospitalization pt had increased depression with guilt, hopelessness, feelings of worthlessness and suicidal thoughts. Pt reported appetite is mildly increased. He endorsed ruminative anxiety about multiple issues. Panic attacks in social situations in which has shortness of breath heart palpitations. Discharge Diagnoses:: F31.9 Bipolar 1 disorder. Anxiety. PTSD Reason for Discharge:: Pt has made progress on his treatment goals while in PHP, has maintained safety, and reported improved mood stability. Pt no longer meets medical necessity for [facility] level of care. - Treatment Progress During Treatment & Response: Pt has shown progress with improved mood stability, increased awareness of coping with ability to challenge anxious thoughts, and decrease in anxious symptoms. Pt has maintained safety and since discharge from inpatient reports only one passive thought of with no plan or intention. Pt has responded well to group and individual sessions AEB contributing during group discussion, engaging in activities, and completing assigned homework from individual sessions. Issues Still to be Addressed:: Pt continuing to become overwhelmed quickly which results in not being able to complete tasks. Pt is working on setting smaller goals to help him follow through with tasks and responsibilites; needs additional practice. Pt verbalizes the thought of returning to work is anxiety provoking due to his difficulty concentrating, shutting down when anxious, and challenges with problem solving. Pt could benefit from continued work with identifying and challenging distorted and anxious thought patterns. Pt could benefit from learning healthy coping skills to assist with managing moods. Discharge Recommendations/Instructions:: Pt recommended to start IOP level of care to reinforce healthy skills learned during PHP and continue to build skills and strategies to help pt return to baseline level of functioning. Discharge Handout: Complete Discharge Handout with client on aftercare options and continuity of care.
[2018-02-02 16:00] VITALS: BP 110/75; PULSE 90; RESP 16
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
== END 2017-12-16 14:00 | disposition home or self-care (01) ==
LOC: BHPHP 09:00
PROVIDERS: Family Provider Family Medicine; PCP Family Medicine; Visit Provider Psychiatry & Neurology Psychiatry
DX: F31.9 Bipolar disorder, unspecified (principal)
CPT/HCPCS: H0035; 90832; 90834; 90837; 90853; G0410

== ENCOUNTER 2017-12-20 09:00 | Outpatient (RCR) | payer OTHER, SELFPAY ==
--- NOTE | 2017-12-13 11:30 | BH.SGPN.GN ---
Behaviors/Verbalizations/Mental Status: [] Pt eye contact good, casually dressed, motor activity appropriate, speech normal rate and tone, mood euthymic, congruent affect, thoughts linear and intact, no evidence of delusions or hallucinations. Client Response/Progress/Benefit: []Pt engaged and active throughout session AEB contributions to discussion, cooperating with others, and attentive to peers. Pt reported having a positive attitude and having hope as strategies that helped group be successful with overcoming stressful activity. Pt added to discussion about different strategies that can help manage stress in the moment. Pt could relate to the Avoid unnecessary stress strategy because he reported he can avoid added stress by making sure to leave on time for work. Pt reported his goal for the week is to set limits on himself so he doesn't try to take on too many tasks. Pt seemed to benefit from learning about the 4 A's to reduce stress. Continue IOP level of care to decrease depression, increase use of healthy skills, and prevent decompensation. Narrative Note: []
--- NOTE | 2017-12-20 09:05 | BH.SGPN.GN ---
Behaviors/Verbalizations/Mental Status: [] Eye contact is good. Motor activity is appropriate. Appearance is neat. Speech is Appropriate. Mood is anxious. Affect is congruent. Thoughts are linear and logical. No evidence of psychosis. Reviewed daily check in sheet and no reports of suicidal ideations or intent Client Response/Progress/Benefit: [] Pt was an active participant in group discussion. Emotion for today is optimistic. Shared with the group that he accomplished goals over the weekend. Continues to report daily stressors and negative thoughts however believes that he is managing more effectively. Reports increased insight and awareness. Provided excellent feedback to peers regarding negative effects of people pleasing and the importance of boundaries. Progress noted per pt report. Benefited from group support and praise. Will continue in IOP to maintain safety, stabilize mood, and improve functioning. Narrative Note: []
--- NOTE | 2017-12-20 10:10 | BH.SGPN.GN ---
Behaviors/Verbalizations/Mental Status: [] Eye contact is good. Motor activity is appropriate. Appearance is neat. Speech is Appropriate. Mood is anxious. Affect is congruent. Thoughts are linear and logical. No evidence of psychosis. Client Response/Progress/Benefit: [] Client responded well to session as evidenced by sharing thoughts and feelings as well as listening attentively to others. Client shared his goals tend to be in vicious and on ending which turns into self-defeating because the expectations are unrealistic. Client identified 3 things he can take away from group session is to set realistic goals, timeframe of when he wants to accomplish the goal, and break his goals into smaller more manageable parts. Continued benefit from learning about how to set smart goals as well as practicing setting small goals in the moment. Narrative Note: []
--- NOTE | 2017-12-20 11:20 | BH.SGPN.GN ---
Behaviors/Verbalizations/Mental Status: []Eye contact is good. Motor activity is appropriate. Appearance is neat. Speech is Appropriate. Mood is anxious. Affect is congruent. Thoughts are linear and logical. No evidence of psychosis. Client Response/Progress/Benefit: []Pt active participant AEB contributions to discussion and listening to others. Pt reported his SMART goal is to take notes during IOP group sessions and reflect on the notes each day. Pt reported this will benefit him because it will reinforce him what he has learned during the day. Pt shared potential obstacles that could prevent him from acomplishing his goal to include napping, forgetting, and not having his materials with him. Pt reported solutions to the potential barriers include: setting alarms if takes a nap, including the reviewing of materials in his daily routine, and putting his materials in a place he will see it everyday. Pt seemed to benefit from identifying a SMART goal and focusing on what he can do to help himself accomplish the goal. Narrative Note: []
--- NOTE | 2017-12-20 15:48 | BH.MDN ---
Multi-Disciplinary Note - Note 30-min Individual Time Started:: 12:30 Date: 12/20/17 Purpose of session/treatment goals addressed:: Purpose of session was to assess pt's current symptoms and stressors. Other topics: reviewing weekend goal, identifying treatment goals for IOP. Motor Activity:: Appropriate Appearance:: Casual Speech:: Appropriate Mood:: Euthymic Affect:: Congruent Thoughts:: Linear, Logical, No evidence of hallucinations/delusions noted Staff Interventions:: Therapist utilized open ended questions to elicit pt's current symptoms and stressors. Therapist reviewed pt's weekend goal. Therapist worked with pt to identify treatment goals for IOP. Therapist provided support by using active listening. Therapist provided pt homework to note any anxious/depressive thought patterns he has throughout week. Client Response:: Pt reported he was able to accomplish his goal of painting his bedroom. Pt shared he broke up the goal into manageable parts throughout the weekend. Pt reported feeling accomplished for sticking with his plan and not giving up even when frustrated at times. Pt reported he recognizes he made progress while in PHP and for treatment goals while in IOP he shared would like to continue to focus on identifying and challenging anxious and depressive thought patterns. Pt reported he wants to continue to learn and improve use of healthy coping to manage mental health symptoms. Pt agreeable to keep track of any negative/anxious thought patterns he has throughout week. Risks/Concerns:: Pt denies suicidal ideation, plan or intention to date. Progress Toward Goals/Plan:: Pt progress noted by pt being able to complete identified goal for weekend by breaking goal into smaller manageable parts. Pt reports continuing to have distorted thought patterns, but does have increased insight and awareness on strategies to reframe or challenge. Pt to continue IOP level of care to maintain gains, improve daily functioning, and prevent decompensation. Time Stopped:: 13:00
--- NOTE | 2017-12-21 09:05 | BH.SGPN.GN ---
Behaviors/Verbalizations/Mental Status: [] Eye contact is good. Motor activity is appropriate. Appearance is casual. Speech is Appropriate. Mood is anxious. Affect is congruent. Thoughts are linear and logical. No evidence of psychosis. Reviewed daily check in sheet and no reports of suicidal ideations or intent. Client Response/Progress/Benefit: [] Pt was an active participant in group. Provided appropriate feedback to peers. Emotion for today is unsure and anxious. States some anxiety as he does not have a plan for today. He shared with the group some thoughts or reasons why not have a plan causes him anxiety and group provided some feedback and suggestions which pt was responsive too. He was able to identify some positives yesterday which included making some thought phone calls regarding bills and FMLA. Reports that he was proud that he didn't avoid or ignore these bills, but rather followed up on them. He also discussed finding a distraction through video games which he reports has been helpful. Very anxious and unsure of himself and his future. Continues to reports depression and anxiety on daily basis however decreased frequency, duration, and intensity. Will continue in IOP to maintain safety, prevent decompensation, and improved daily functioning to return to work. Narrative Note: []
--- NOTE | 2017-12-21 10:14 | BH.SGPN.GN ---
Behaviors/Verbalizations/Mental Status: [Client engaged in group, maintained good eye contact. Casual attire. Appropriate grooming/hygiene. Motor activity WNL - appearing more relaxed and less rigid than in previous groups. Client speech was a normal rate and tone, mood euthymic, anxious, affect congruent with mood, thoughts linear and logical - reflective in nature, no evidence of delusions or hallucinations.] Client Response/Progress/Benefit: [Client responded well to session and indicated connecting with group topic of [place] [employer] [place] in which participants explored benefits of making changes to promote mental health as well as potential barriers to making these changes. Client indicating relating to other participants when discussing that change is uncomfortable and overwhelming at times. He went on to explain that he knows if her can begin focusing less about the future, making S.M.A.R.T. goals and reminding himself that it's okay to be wrong he would likely feel less anxious, but struggles with several barriers preventing himself from doing so. Client displaying progress in his ability to identify specific barriers to mental health tx progress and expressed that fear of failure, fear that others won't understand, and use of distorted thinking patterns are his largest obstacles. He discussed that focusing on motivation for why he is working on his mental health as well as breaking things down into small manageable steps may be helpful. CLient recommended continued IOP tx to further improve ability to consistently apply skills and identify specific steps he may take to manage current stressors and challenge distortions. ] Narrative Note: []
--- NOTE | 2017-12-21 14:55 | BH.PSA ---
Source of Information - Presenting Problems/Circumstances Problems, Referral Source, Mental Status, Client: Refer to psychosocial in pt's PHP chart dated 12.12.17. Nothing has changed since PHP admission. Diagnoses - Diagnoses Diagnosis #1:: Bipolar 1 disorder F 31.9 Diagnosis #2:: Anxiety Diagnosis #3:: PTSD
--- NOTE | 2017-12-22 09:05 | BH.SGPN.GN ---
Behaviors/Verbalizations/Mental Status: [] Eye contact is good. Motor activity is appropriate. Appearance is neat. Speech is Appropriate. Mood is anxious. Affect is congruent. Thoughts are linear and logical. No evidence of psychosis. Reviewed daily check in sheet and no reports of suicidal ideations or intent. Client Response/Progress/Benefit: [] Pt was an active participant in group discussion. Provided appropriate feedback to peers. Emotion for today is hopeful Shared with the group that he made a goals yesterday to not have a goal. Stated that with his Bipolar dx and past goal-directed behaviors he often believed that if he was not completing tasks or goals he was useless. Stated that he gave himself permission to relax yesterday. Stated that this was awkward however beneficial and a form of self-care. Stated that self-care and relaxation is a skills that will help him in his recovery. Progress noted as pt continues to use coping skills outside of group. Will continue in IOP to maintain safety, stabilize mood, and prevent decompensation. Narrative Note: []
--- NOTE | 2017-12-22 10:12 | BH.SGPN.GN ---
Behaviors/Verbalizations/Mental Status: []Client alert and oriented, neatly dressed and groomed. Eye contact good. Motor activity appropriate. Speech within normal limits. Affect congruent, mood euthymic. Thoughts linear, logical, no signs of hallucinations or delusions. Client Response/Progress/Benefit: []Client responded well to session, participating in activity and discussion. Client discussed coping skills with the group and how one develops coping skills. Client stated using unhealthy coping skills is easier, but healthy coping skills provide long-term benefits. Client participated in a group activity and shared having stability means having a strong base of healthy coping skills. ?Client appeared to benefit from learning about how one learns coping skills and from recognizing the importance of having internal and external coping skills. Client seems to be progressing as evidenced by his report of improved mood and motivation, but he can continue to benefit from IOP to increase mood stability.
--- NOTE | 2017-12-22 11:10 | BH.SGPN.GN ---
Behaviors/Verbalizations/Mental Status: []Client alert and oriented, neatly dressed and groomed. Eye contact good. Motor activity appropriate. Speech within normal limits. Affect constricted, mood euthymic. Thoughts linear, logical, no signs of hallucinations or delusions Client Response/Progress/Benefit: []Client responded well to session, quiet, but providing input when prompted. Client helped the group discuss the different categories of coping skills and the pros and cons of each. Client created a coping skills menu with a coping skill from each category- distraction, grounding, emotional release, self-love, and thought challenge. Client?s menu included: reading, exercising at least 3 times a week, self-care, listening to music, and positive affirmations. Client reported having a variety of coping skills is best for managing mental health symptoms. Client appeared to benefit from gaining numerous coping skills and learning the pros and cons of each coping skill category. Client to continue IOP to prevent decompensation and increase mood stability.
--- NOTE | 2017-12-23 09:10 | BH.SGPN.GN ---
Behaviors/Verbalizations/Mental Status: [] Eye contact is good. Motor activity is appropriate. Appearance is casual. Speech is baseline. Mood is euthymic. Affect is full. Thoughts are linear and logical. No evidence of psychosis. Reviewed daily check in sheet and no reports of suicidal ideations or intent. Client Response/Progress/Benefit: [] Pt was an active participant in group discussion on managing negative self-talk when alone and unrealistic demands we place on ourselves. Emotion for today is positive. States that external stressors like bills and insurance issues were resolved fully yesterday. Proud of himself for completing these tasks and feels that he can finally give himself more permission to relax. Yesterday and today he has been using self-care strategies. Discussed at length how his need to be perfect effects his mental wellness and how this arose due to his trying to meet his father's expectations as a child. Utilize mindfulness techniques. Admits that daily anxiety and depression continue to affect his functioning however he is more optimistic since starting the program that he can manage his emotions and function at work. Progress noted per pt report. Continues to report awareness and insight. Will continue in IOP to maintain safety, stabilize mood, and increase functioning to return to work. Narrative Note: []
--- NOTE | 2017-12-26 09:03 | BH.SGPN.GN ---
Behaviors/Verbalizations/Mental Status: [Client maintained good eye contact, casually dressed, motor activity WNL - at times appearing tense or anxious, speech normal rate and tone, mood anxious, euthymic expressed as relieved, affect congruent, thoughts linear and logical, no evidence of delusions or hallucinations. Therapist reviewed client?s symptom tracker to assess for intensity of mental health symptoms and identify risk for suicide. No signs of suicidal ideation, plan, or intent to date.] Client Response/Progress/Benefit: [Client receptive of session, actively engaged throughout. He indicated having a productive weekend as he was able to successfully complete the goal he is set for himself on Tuesday. 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 Client benefited from identifying areas of progress such as being able to continue to work towards successful goal completion despite wanting to give up or take longer breaks the necessary when the tasks became difficult. He indicated feeling proud of himself and satisfied with his ability to reach the goals he had established following successful completion. Client went on to discuss that he was even able to combat negative thinking throughout the weekend she improved motivation as a result. Client indicated plans to put away his close as the next step towards creating a space that feels his own. Recommended continue treatment to prevent decompensation and continue to maintain gains made] Narrative Note: []
--- NOTE | 2017-12-26 10:32 | BH.SGPN.GN ---
Behaviors/Verbalizations/Mental Status: [] Pt eye contact good, casually dressed, motor activity appropriate, speech normal rate and tone, mood euthymic, congruent affect, thoughts linear and intact, no evidence of delusions or hallucinations. Client Response/Progress/Benefit: [] Client tend to be quiet listening attentively to others and concrete discussion at times. Client reported he recognizes the importance of perspective because the way he views certain things can give him energy to handle his challenges or to avoid his challenges. Client connected with the idea of having a growth mindset in which she views challenges as opportunities for growth versus challenges that he cannot overcome. Client seem to benefit from learning about the benefits of looking at situations in a more advantageous light versus focusing on what cannot do. Narrative Note: []
--- NOTE | 2017-12-26 11:37 | BH.SGPN.GN ---
Behaviors/Verbalizations/Mental Status: [] Pt eye contact good, casually dressed, motor activity appropriate, speech normal rate and tone, mood euthymic, congruent affect, thoughts linear and intact, no evidence of delusions or hallucinations. Client Response/Progress/Benefit: []Pt engaged throughout session as shown by pt taking notes, listening attentively to others, and contributing to discussion at times. Pt reported a strategy to help overcome what seems impossible is to view his challenges as opportunities. Pt shared it's also important to try various solutions, not trying the same solution over and over again if it's not working. Pt seemed to benefit from learning various strategies to help overcome what appears impossible. Pt to continue IOP level of care to decrease depression, maintain gains, and prevent decompensation. Narrative Note: []
--- NOTE | 2017-12-27 09:02 | BH.SGPN.GN ---
Behaviors/Verbalizations/Mental Status: [] Pt eye contact fair, casually dressed, motor activity restless, speech normal rate and tone, mood agitated, congruent affect, thoughts linear and logical, no evidence of delusions or hallucinations. Reviewed client?s symptom tracker, no signs of suicidal ideation, plan, or intent as of today. Client Response/Progress/Benefit: [] Client reported feeling agitated this morning because he forgot to take his medications on time last night which has resulted in him being extremely drowsy this morning since he took his medications late in the evening. Client shared he is frustrated because his medications cause such drowsiness and if this were to happen when he has to go to work he will be able to function at his base line. Client reported on a positive note he did purchase a desk which was 1 of his goals he created yesterday. Client shared another positive is he cleaned out all the empty boxes from the other friend and she has purchased which has given him more space. Client reported he continues to move forward on his goals which helps him feel productive. Client demonstrating progress as evidenced by client continuing to complete and established goals. Client to continue IOP level of care to maintain gains and prevent decompensation. Narrative Note: []
--- NOTE | 2017-12-27 10:05 | BH.SGPN.GN ---
Behaviors/Verbalizations/Mental Status: []Client alert and oriented, neatly dressed and groomed. Eye contact good. Motor activity appropriate. Speech within normal limits. Affect constricted, mood irritable. Thoughts linear, logical, no signs of hallucinations or delusions. Client Response/Progress/Benefit: []Client responded well to session, engaged in discussion. Client shared effective communication ?helps your supports know what you need.? Client identified ?preconceived notions? and cognitive distortions as barriers to communication. Client contributed to discussion of the different communication styles. Client reported belief he used the aggressive communication style before seeking mental health help. Client shared being aggressive increased client?s anger at work and led to guilt. Client appeared to benefit from gaining awareness of how communication styles impact mental health. Client to continue IOP to increase mood stability and consistent application of healthy coping skills.
--- NOTE | 2017-12-27 11:10 | BH.SGPN.GN ---
Behaviors/Verbalizations/Mental Status: []Client alert and oriented, neatly dressed and groomed. Eye contact good. Motor activity appropriate. Speech within normal limits. Affect congruent, mood anxious, euthymic. Thoughts linear, logical, no signs of hallucinations or delusions. Client Response/Progress/Benefit: []Client responded well to session, active participant. Client engaged in the communication activity and identified barriers that impact one?s communication with supports. Client stated ?not having all the information? was a barrier in the activity and in daily life. ?Client helped the group identify strategies to improve communication including: ?summarizing,? remaining calm, and knowing when to take breaks. Client appeared to benefit from practicing effective communication and gaining awareness of personal barriers. Client to continue IOP as he has increased self-awareness, but client continues to struggle with mood instability and negative thinking.
--- NOTE | 2017-12-28 09:10 | BH.SGPN.GN ---
Behaviors/Verbalizations/Mental Status: []Client alert and oriented, neatly dressed and groomed. Eye contact good. Motor activity appropriate. Speech soft. Affect constricted, mood dysthymic. Thoughts linear, logical, no signs of delusions or hallucinations. Therapist reviewed client's symptom tracker, no signs of risk AEB client denying suicidal ideation, plan, and intent as of 12/28/17. Client Response/Progress/Benefit: []Client responded well to session, quieter than previous sessions. Client reports feeling flat today, but client is unsure why. With further exploration, client recognized his flat feelings may be from feeling tired yesterday due to taking his medications later and from being busy over the weekend. Client identified eating tacos last night and having more energy than yesterday as positives. Client reported he plans to focus on his goals of putting together his desk today as client shared this will improve his flat mood. Client appeared to benefit from processing and normalizing his emotions. Progress noted as evidenced by client's increased motivation and accomplishment of goals, but he can continue to benefit from challenging negative thinking and increased mood stability.
--- NOTE | 2017-12-28 10:10 | BH.SGPN.GN ---
Behaviors/Verbalizations/Mental Status: [] Pt eye contact good, casually dressed, motor activity appropriate, speech normal rate and tone, mood euthymic, congruent affect, thoughts linear and intact, no evidence of delusions or hallucinations. Client Response/Progress/Benefit: []Pt engaged in session AEB pt sharing thoughts and feelings and listened attentively to others. Pt appeared to connect with other's comments that you have to hit rock bottom sometimes in order to be motivated to make changes in life. Pt shared the following are things that keep him stuck: self-doubt, criticism from others, self-criticism, and lack of motivation. Pt identified self-doubt to be keeping him stuck the most because he constantly questions himself on decisions he makes. Pt seemed to benefit from increased awareness of what is contributing to pt staying stuck and not moving forward. Narrative Note: []
--- NOTE | 2017-12-28 11:15 | BH.SGPN.GN ---
Behaviors/Verbalizations/Mental Status: [] Pt eye contact good, casually dressed, motor activity appropriate, speech normal rate and tone, mood euthymic, congruent affect, thoughts linear and intact, no evidence of delusions or hallucinations. Client Response/Progress/Benefit: [] Pt listened attentively to others and was engaged in creating small goals for the next couple of weeks. Pt reported for his plan he is focusing on increasing motivation. Pt reported focusing on this will benefit him because he will feeling like a mentally stable, hard working and valuable individual. Pt shared his first small goal is to wake up at 5:30am each day so he has time to complete self-care each morning. Pt reported his second small goal is to journal before going to sleep and go to sleep at the same time each day. Pt seemed to benefit from creating small goals he can focus on throughout the month. Pt to continue IOP level of care to improve mood stability, increase generalization of skills and prevent decompensation. Narrative Note: []
--- NOTE | 2018-01-01 21:33 | BH.MDN_ITS ---
Multi-Disciplinary Note - Note 45-min Individual Time Started:: 12:30 Date: 12/26/17 Purpose of session/treatment goals addressed:: Purpose of session was to assess current symptoms and stressors. Other topics included: challenging distortions, identifying positives, and goal setting for week. Eye Contact:: Good Motor Activity:: Restless Appearance:: Casual Speech:: Appropriate Mood:: Euthymic Affect:: Congruent Thoughts:: Linear, Logical, No evidence of hallucinations/delusions noted Staff Interventions:: Therapist used open ended questions to elicit pt's current symptoms and stressors. Therapist reviewed hmework from previous individual session. Therapist assisted pt with reframing the distorted thought patterns pt experienced over the weekend. Therapist worked with pt to identify goals for the week. Provided support by using active listening and validating emotions. Client Response:: Pt reported he had a good weekend because finished his other project of getting his new furniture put together. Pt stated feeling accomplished for now completing two big projects of painting his room and putting his furniture together. Pt shared he was aware of his distorted thoughts throughout the weekend. Pt shared some of his thoughts were I should be by now, I should have my own house, and I should be able to handle putting furniture together. Pt stated when he had the I should thoughts it led to increased ruminations and negative thoughts about self. Pt worked with therapist to reframe the I should distorted thought patterns. pt shared he connects with the importance of changing one or two words that can make the statement end with a more positive result. Pt identified his goals for the week are to first purchase his desk to complete his room, clear out the boxes to decrease clutter, and by the end of the week start his exercise routine. Pt shared he believes the identified goals are realistic. Risks/Concerns:: Pt denies suicidal ideation, plan or intention to date. Pt future focused AEB pt completing projects at home and discussing plan for returning to work. Progress Toward Goals/Plan:: Pt demonstrating progress with reporting improved mood stability, completing set goals, increased awareness of distorted thought patterns and ability to reframe unhelpful thoughts. Pt expresses anxiety about returning to work, unsure if he will be ready to perform at the level he was prior to his mental health symptoms worsening. Pt to cotinue [facility] level of care to maintain gains and prevent decompsenation. Time Stopped:: 13:00
--- NOTE | 2018-01-02 09:05 | BH.SGPN.GN ---
Behaviors/Verbalizations/Mental Status: []Client alert and oriented, neatly dressed and groomed. Eye contact good. Motor activity appropriate. Speech within normal limits. Affect full, mood euthymic. Thoughts linear, logical, no signs of hallucinations or delusions. Reviewed client?s symptom tracker, no risk for suicidal ideation, plan, or intent as of 01/02/18. Client Response/Progress/Benefit: []Client responded well to session, smiling throughout and joking with peers. Client reports feeling ?hopeful? today after having a positive weekend. Client?s positives including ?scrapping my to-do list? and taking things one thing at a time. Client shared he used to feel like he needed to do ?everything right away,? but not realizes this made client feel more anxious. Another positive was client spent time socializing with friends this weekend and did not isolate which client shared is ?big for me.? Client reported he does not have any current stressors. Client appeared to benefit from reflecting on strategies that have helped client reduce anxiety and depression. Progress noted as shown by client?s increased socialization and reduced anxiety. Client to continue IOP to promote gains and increase mood stability.
--- NOTE | 2018-01-02 14:59 | BH.MDN ---
Multi-Disciplinary Note - Note 30-min Individual Time Started:: 12:40 Date: 01/02/18 Purpose of session/treatment goals addressed:: Purpose of session was to assess current symptoms and stressors. Other topics: identifying progress and reinforcing positive skills. Eye Contact:: Good Motor Activity:: Appropriate Appearance:: Casual Speech:: Appropriate Mood:: Euthymic Affect:: Congruent Thoughts:: Linear, Logical, No evidence of hallucinations/delusions noted Staff Interventions:: Therapist used open ended questions to elicit pt's current symptoms and stressors. Therapist elicited pt's thoughts about progress. Therapist reviewed distorted thought patterns with pt. Therapist reinforced pt's positive coping skills and strategies. Therapist provided support by using active listening. Client Response:: Pt reported he is feeling less anxious and more stable today. Pt shared he had a really good weekend because he made himself be social. Pt reported when he attended religion service on and Tuesday he was more involved and engaged with the other religion members. Pt shared he has always been on the outskirts when it came to social events. Pt reported he hung out with friends on Tuesday and went to a social gathering after religion on Tuesday. Pt shared at the social gathering he met several people that he connected with on various subjects. Pt reported minimal anxiety while around others, which pt noted is progress for him. Pt shared he thinks he is doing better because has awareness of his distorted thought pattenrs. Pt reported another strategy that has helped is not scheduling every part of his day, instead focusing on what he has to get done and going with the flow for the rest of the day. Pt reported he believes the new perspective will help decrease his anxiety and result in him being more productive. Pt shared having daily goals as another strategy that is helping him move forward. Pt reported his goals today are to workout and complete his FMLA paperwork. Pt shared he is mostly nervous about whether his medication is correct due to experience drowsiness in the morning. Pt reported he is anxious that he will still have the drowsy side effect from his medication which will make it difficult to commute to work every morning after his FMLA is over. Pt able to challenges his worries that he still has time to adjust to the medication or make adjustments with advisement from IOP psychiatrist. Risks/Concerns:: Pt denies suicidal ideation, plan or intention to date. Pt future focused. Progress Toward Goals/Plan:: Pt demonstrating progress with increased mood stability, decreased anxiety, and generalization of healthy skills. Pt continuing to meet the goals he sets on a weekly and daily basis. Pt focusing on increasing his social network by attending social events through his chuch. Pt noted the positive impact it had on his mental health when he hung out with others over the weekend versus isolating. Pt to continue IOP level of care to maintain gains and prevent decompensation. Time Stopped:: 13:10
--- NOTE | 2018-01-02 15:22 | BH.MDN_ITS ---
Multi-Disciplinary Note - Note 30-min Individual Time Started:: 12:40 Date: 01/02/18 Purpose of session/treatment goals addressed:: Purpose of session was to assess current symptoms and stressors. Other topics: identifying progress and reinforcing positive skills. Eye Contact:: Good Motor Activity:: Appropriate Appearance:: Casual Speech:: Appropriate Mood:: Euthymic Affect:: Congruent Thoughts:: Linear, Logical, No evidence of hallucinations/delusions noted Staff Interventions:: Therapist used open ended questions to elicit pt's current symptoms and stressors. Therapist elicited pt's thoughts about progress. Therapist reviewed distorted thought patterns with pt. Therapist reinforced pt's positive coping skills and strategies. Therapist provided support by using active listening. Client Response:: Pt reported he is feeling less anxious and more stable today. Pt shared he had a really good weekend because he made himself be social. Pt reported when he attended gnosticism service on and Tuesday he was more involved and engaged with the other gnosticism members. Pt shared he has always been on the outskirts when it came to social events. Pt reported he hung out with friends on Tuesday and went to a social gathering after gnosticism on Tuesday. Pt shared at the social gathering he met several people that he connected with on various subjects. Pt reported minimal anxiety while around others, which pt noted is progress for him. Pt shared he thinks he is doing better because has awareness of his distorted thought pattenrs. Pt reported another strategy that has helped is not scheduling every part of his day, instead focusing on what he has to get done and going with the flow for the rest of the day. Pt reported he believes the new perspective will help decrease his anxiety and result in him being more productive. Pt shared having daily goals as another strategy that is helping him move forward. Pt reported his goals today are to workout and complete his FMLA paperwork. Pt shared he is mostly nervous about whether his medication is correct due to experience drowsiness in the morning. Pt reported he is anxious that he will still have the drowsy side effect from his medication which will make it difficult to commute to work every morning after his FMLA is over. Pt able to challenges his worries that he still has time to adjust to the medication or make adjustments with advisement from IOP psychiatrist. Risks/Concerns:: Pt denies suicidal ideation, plan or intention to date. Pt future focused. Progress Toward Goals/Plan:: Pt demonstrating progress with increased mood stability, decreased anxiety, and generalization of healthy skills. Pt continuing to meet the goals he sets on a weekly and daily basis. Pt focusing on increasing his social network by attending social events through his chuch. Pt noted the positive impact it had on his mental health when he hung out with others over the weekend versus isolating. Pt to continue IOP level of care to maintain gains and prevent decompensation. Time Stopped:: 13:10
--- NOTE | 2018-01-03 09:00 | BH.SGPN.GN ---
Behaviors/Verbalizations/Mental Status: [] Pt eye contact good, casually dressed, motor activity appropriate, speech normal rate and tone, mood euthymic, congruent affect, thoughts linear and intact, no evidence of delusions or hallucinations. Reviewed client?s symptom tracker, no signs of suicidal ideation, plan, or intent as of today. Client Response/Progress/Benefit: [] Client reported he had a uneventful day. Client shared he was productive throughout the day as evidenced by getting various chores and tasks completed. Client reported it is helping him not create a schedule to do list which causes anxiety and lack of motivation to complete the task. Client shared the more relaxed approach is resulting in improved productivity. Client reported the only stressor he can note currently is having a lot of vivid dreams which have recently disrupted his sleep every 3-4 hours. Client shared he will keep note of how often the dreams are occurring and disruption of sleep. Client demonstrating progress as evidenced by him continuing to work towards his goals, improve mood stability, and utilization of healthy skills. Client to continue IOP level of care to maintain gains and prevent decompensation. Narrative Note: []
--- NOTE | 2018-01-03 10:07 | BH.SGPN.GN ---
Behaviors/Verbalizations/Mental Status: []Client alert and oriented, neatly dressed and groomed. Eye contact good. Motor activity appropriate. Speech within normal limits. Affect congruent to mood, mood frustrated. Thoughts linear, logical, no signs of hallucinations or delusions. Client Response/Progress/Benefit: []Client responded well to session, active participant. Client reported being able to control one?s emotions and communicate helps a person?s relationships and prevents ?exploding.? Client engaged in an activity aimed to demonstrate the difficulty of communicating when experiencing strong emotions. During the activity client became frustrated due to miscommunication. Client shared it was difficult for him because ?I could see but I couldn?t get my point across.? The group connected this to not knowing how to communicate one?s emotions to supports. Client shared awareness and practicing communicating emotions is beneficial in overcoming now knowing how to communicate emotions. Client appeared to benefit from gaining insight to how he responds and communicates in frustrating situations.
--- NOTE | 2018-01-03 11:08 | BH.SGPN.GN ---
Behaviors/Verbalizations/Mental Status: []Client alert and oriented, neatly dressed and groomed. Eye contact good. Motor activity appropriate. Speech within normal limits. Affect congruent, mood slightly irritable per client report. Thoughts linear, logical, no signs of hallucinations or delusions. Client Response/Progress/Benefit: []Client responded well to session, asking questions and providing input. Client helped the group identify different emotions, behaviors, and coping skills for the four zones of alertness. Client shared he feels like he is in the ?yellow zone? today as he is recognizing some frustration. Client identified coping skills to help get back to the ?green zone? and shared his goal for today is to make time for exercise which will ?release my frustrations.? Client appeared to benefit from gaining awareness of what each emotional regulation zone looks like as well as the supports needed in those zones. Client to continue IOP as he has progressed with reduced isolation and thought challenging, but he continues to struggle with mood stability.
--- NOTE | 2018-01-04 09:10 | BH.SGPN.GN ---
Behaviors/Verbalizations/Mental Status: [] Eye contact is good. Motor activity is appropriate. Appearance is casual. Speech is Appropriate. Mood is flat. Affect is depressed and irritable. Thoughts are linear and logical. No evidence of psychosis. Reviewed daily check in sheet and no reports of suicidal ideations or intent. Client Response/Progress/Benefit: [] Pt spoke only when prompted. Did not provided feedback to peers. Pt reports regression related to increased fatigue stating he is exhausted. Slept a great deal yesterday and continues to feel tired. He choose not to elaborate much more and therapist did not pressure him. He was attentive however was restless at times during group. No progress noted per pt report. Did not benefit from group this AM due to current mood. Will continue in IOP to stabilize mood, maintain safety, and prevent further decompensation. Narrative Note: []
--- NOTE | 2018-01-10 14:39 | BH.MTP_ITS ---
Master Treatment Plan - Patient Information Program Physician:: Dr. Watson Primary Therapist:: Jena Mcbride, [facility] - Psychiatric Diagnoses Psychiatric Diagnoses:: Bipolar 1 disorder. Anxiety. PTSD Diagnosis Code(s):: F 31.9 - Estimated LOS Estimated LOS (in weeks):: 6 Problem/Goal #1 - Problem/Goal #1 Stated Goal:: Client will increase mood stability and decrease depressive symptoms due to Bipolar I disorder through Intensive Outpatient Program. Description of Barriers: Pt's distorted thought patterns, low self-confidence, anxious symptoms, isolative behaviors, and not being able to work or complete basic home tasks/responsibilties are potential barriers to treatment. Functional Impact: Pt discharged from inpatient psychiatric hospital on December 05 due to mood instability and suicidal ideation. Pt has taken a leave of absence from work due to mental health symptoms, reported he struggles with concentrating, freezing when anxious, and not being able to complete many tasks. Pt also having interpersonal relationship issues which have exasperated pt's mental health symptoms. Goal Relevant Strengths/Supports: Pt is intelligent, resilient, and verbalizes motivation to get better. Pt reports have several spiritual advisors that are supportive. - Objectives Objective #1 Stated Objective: Identify and replace 3-4 negative and distorted messages that reinforce depressive symptoms. Interventions: Therapist will help client identify distorted, negative beliefs about self and world and replace those messages with positive, affirmative messages. Discharge Criteria: Client will have achieved this goal when can identify at least 3 negative or distorted thought patterns and replace those messages with positive, affirmative messages. Target Date: 01/31/18 Review Date: 01/17/18 Objective #2 Stated Objective: Pt will decrease depressive and manic symptoms AEB pt?s score on the DSM 5 cross-cutting measure and improve pt?s daily functioning. Interventions: Through groups and individual therapy, pt will be provided with education on cognitive distortions, mistaken beliefs, and identifying and combating negative self-talk. Therapist will assist pt with getting back into the activities she once enjoyed as well as increasing healthy coping strategies. Discharge Criteria: Pt will have met this goal when pt?s score on the DSM 5 cross cutting measure for depression and purnima has been decreased and per pt?s report daily functioning has improved. Target Date: 01/31/18 Review Date: 01/17/18 Problem/Goal #2 - Problem/Goal #2 Stated Goal:: Reduce overall frequency, intensity, and duration of the anxiety so that daily functioning is not impaired. Description of Barriers: Pt's distorted thought patterns, low self-confidence, anxious symptoms, isolative behaviors, and not being able to work or complete basic home tasks/responsibilties are potential barriers to treatment. Functional Impact: Pt discharged from inpatient psychiatric hospital on December 05 due to mood instability and suicidal ideation. Pt has taken a leave of absence from work due to mental health symptoms, reported he struggles with concentrating, freezing when anxious, and not being able to complete many tasks. Pt also having interpersonal relationship issues which have exasperated pt's mental health symptoms. Goal Relevant Strengths/Supports: Pt is intelligent, resilient, and verbalizes motivation to get better. Pt reports have several spiritual advisors that are supportive. - Objectives Objective #1 Stated Objective: Client will identify 2-3 anxious thinking patterns and be able to challenge and replace those thoughts. Interventions: Therapist will explore and educate client about cognitive distortions that trigger anxious mood. Therapist will assist client in identifying strategies to challenge and defeat those thinking patterns. Discharge Criteria: Client will have met this goal when can identify at least 2 anxious thinking patterns and reframe anxious thoughts to realistic, positive thoughts. Target Date: 01/31/18 Review Date: 01/17/18 Objective #2 Stated Objective: Pt will decrease anxious symptoms AEB pt?s score on the DSM 5 cross-cutting measure improve pt?s daily functioning. Interventions: Through groups and individual therapy, pt will be provided education about anxiety?s impact on body and common physiological reaction to anxiety. Therapist will teach pt appropriate breathing techniques and build healthy coping skills to manage daily anxieties. Discharge Criteria: Pt will have met this goal when pt?s score on the DSM 5 cross cutting measure for anxiety has been decreased and per pt?s report daily functioning has improved. Target Date: 01/31/18 Review Date: 01/17/18
--- NOTE | 2018-01-13 14:35 | BH.DR.ITP ---
Initial Treatment Plan - Patient Information Visit Information: ADMISSION DATE: EXPECTED LOS: 4-6 weeks Diagnoses:: Bipolar disorder F 31.9 - Problems/Symptoms Problem #1:: Mixed mood symptoms/ mood cycling Symptom:: Depression, biologic disruption of sleep, over activation, irritability, suicidal ideation Problem #2:: Anxiety Symptom:: Rumination
== END 2018-01-04 23:59 ==
LOC: BHIOP 09:00
PROVIDERS: Family Provider Family Medicine; PCP Family Medicine; Visit Provider Psychiatry & Neurology Psychiatry
DX: F31.9 Bipolar disorder, unspecified (principal); F41.9 Anxiety disorder, unspecified
CPT/HCPCS: H0035; 90832; 90834; 90853

== ENCOUNTER 2018-01-09 09:00 | Outpatient (RCR) | payer OTHER, SELFPAY ==
--- NOTE | 2018-01-09 09:02 | BH.SGPN.GN ---
Behaviors/Verbalizations/Mental Status: []Client alert and oriented, neatly dressed and groomed. Eye contact good. Motor activity anxious. Speech within normal limits. Affect congruent, mood anxious. Thoughts linear, logical, no signs of hallucinations or delusions. Reviewed client?s symptom tracker, no risk for suicidal ideation, plan, or intent as of 01/09/18. Client Response/Progress/Benefit: []Client responded well to session, receptive to feedback from peers. Client reports feeling ?turbulent? today sharing ?I have a lot of good, but I?m also real anxious.? Client?s positives for today included spending time with friends he has not seen for a long time, starting back into his exercise routine, and getting two books in the mail. Client?s current stressor is some issues with ongoing medication management. Client reported he is going to run out of his medication today and does not know what to do. Therapist reassured client that the staff at [facility] will help client figure out his medications. Client to check in with therapist after session for more information. Client appeared to benefit from processing his current stressors and reflecting on positives. Progress noted as evidenced by client?s reduced depressive symptoms and isolation. Client to continue [facility] to promote gains and increase coping skill consistency.
--- NOTE | 2018-01-09 10:10 | BH.SGPN.GN ---
Behaviors/Verbalizations/Mental Status: []Pt eye contact good, casually dressed, motor activity appropriate, speech normal rate and tone, mood anxious, congruent affect, thoughts linear and intact, no evidence of delusions or hallucinations. Client Response/Progress/Benefit: []Pt active participant AEB pt contributing thoughts and ideas throughout session and listened attentively to peers. When processing quote pt reported being resilient is important to him because it will help him endure trying circumstances and bounce back when negative things happen. Pt agreed with peers that resilience is something that can be learned and strengthened. Pt worked cooperatively with his small group to identify how the different factors can help improve one's resilience. Pt connected with the factor of keeping things in perspective because pt reported it will help him feel like his problems are manageable versus catastrophizing a small issue. Pt seemed to benefit from increased awareness of the different components that can help increase pt's resiliency. Narrative Note: []
--- NOTE | 2018-01-09 11:15 | BH.SGPN.GN ---
Behaviors/Verbalizations/Mental Status: []Pt eye contact good, casually dressed, motor activity appropriate, speech normal rate and tone, mood euthymic, congruent affect, thoughts linear and intact, no evidence of delusions or hallucinations. Client Response/Progress/Benefit: []Pt engaged throughout session AEB pt contributing thoughts and ideas to discussion and listening attentively to peers. Pt worked cooperatively with others during the challenge activity. When processing activity pt reported the group maintaining a positive attitude throughout was helpful to the group's success. Pt elaborated the group could easily bounce back from not accomplishing the goal the first time by staying positive. Pt reported the resiliency factor he wants to strengthen is having a positive view of himself. Pt noted by nurturing a positive view of himself it can help decrease negative self-talk and improve his self esteem. Pt seemed to benefit from focusing on which resiliency factor pt would like to strengthen. Pt to continue IOP level of care to maintain gains and prevent decompensation. Narrative Note: []
--- NOTE | 2018-01-09 12:08 | BH.NOTE ---
BH: Inpatient Note - Notes Behavioral Health Inpatient Note: Client has requested a refill on his aripiprazole, only having 1 dose at home. However, he uses a mail-order pharmacy and the prescription he currently has is without refills. [facility] retail pharmacy is able to fill the prescription for him today. The mail-order company can not have the medication to the client for approximately 1 week. Per telephone order from Dr. Watson, the following prescription was called to [facility] pharmacy in [place], [place]: aripiprazole 20mg PO QHS #30, no refills. A new prescription for future use will be phoned to [facility] later this month to avoid the client running out of medication. QUINN ReyesN, RN
--- NOTE | 2018-01-09 16:21 | BH.MTP_ITS ---
Treatment Plan Review Date of Admission:: 12/21/17 Date of Treatment Plan Review:: 01/09/18 Admitting Diagnoses:: Bipolar 1 disorder F 31.9. Anxiety. PTSD Current Diagnoses:: Bipolar 1 disorder F 31.9. Anxiety. PTSD Patient's Response to Treatment:: Pt consistently attending sessions. Pt often an active participant AEB contributing to discussions, taking notes, and often completing assigned homework from both individual and group therapy sessions. Pt completes the goals he sets typically within timeframe set. Pt has been given homework about common anxious thought patterns, which he has not completed to date. Pt's engagement throughout IOP seems to be assisting pt with making progress on his established treatment goals. Status of Current Problems and Symptoms: Moderate progress on treatment goals due to pt following through with homework, attending IOP sessions consistently, and verbalizing motivation to get better. Pt verbalizes continued anxiety about returning to work. Pt concerned his psychiatric medication side effect of drowsiness will impact his ability to commute to work and function at baseline. Pt has gained awareness of the need for social connection and support, which has led to recent action with reaching out to friends. Pt's anxious thought patterns seem to be barrier to social connection, but is willing and wanting to focus on increasing social network. Progress noted with reporting no more suicidal ideations, increased mood stability, improved awareness of distorted and unhelpful thought patterns, and increased goal-oriented behavior. Treatment team recommends pt continue IOP level of care to maintain gains, increase social support, and prevent decompensation. Also, pt released from inpatient hospitalization for SI, treatment team finds it important to see consistent prog ress prior to discharge from IOP. Problem #1 Problem Name:: Client will increase mood stability and decrease depressive symptoms. Status of Goals:: Objective 1 - Pt has made significant progress on objective AEB pt being able to identify at least 3 distorted thought patterns and being able to reframe or replace the distorted thoughts. Pt continues to need assistance at times with reframing certain distorted thoughts, specifically pt's I should thoughts. Pt recognizes the I should thoughts result in increased guilt and depression. Objective 2 - Pt has met this objective of decreasing pt's intake DSM 5 cross cutting measure score for the depression and manic scales. Pt's intake DSM 5 score for depression was a 5 out of 8 with 8 being most severe. Pt's review score on DSM 5 for depression is a 3 out of 8, which demonstrates a decrease in depressive symptoms when compared to intake score. Pt's intake score on DSM 5 for manic scale was a 3 out of 8 with 8 being severe. Pt's review score on DSM 5 for manic is a 1 out of 8 which also demonstrates a decrease in manic symptoms. Team Recommendations:: Team recommends continued focus on objective 1 until pt is able to consistently reframe and challenge distorted thought patterns, without need much assistance from therapist. Team recommends continuing obje ctive 2 with focus on maintaining current DSM 5 scores for both depression and manic scale. Problem #2 Problem Name:: Reduce overall frequency, intensity, and duration of the anxiety. Status of Goals:: Objective 1 - pt has made significant progress on objective AEB pt being able to identify anxious thought patterns and reframe and challenge the anxious thoughts. Pt needs assistance from therapist at times with being able to reframe thoughts. Objective 2 - Has not been met AEB pt's current score for anxiety on the DSM 5 cross cutting measure. Pt's initial score on DSM 5 for anxiety was a 5 out of 12 and pt's current score on anxiety scale is a 6 out of 12, which demonstrates an increase in anxious symptoms. Team Recommendations:: Continue current goal and objectives until pt has successfully met his objectives.
--- NOTE | 2018-01-09 16:21 | BH.MDN_ITS ---
Multi-Disciplinary Note - Note 30-min Individual Time Started:: 12:27 Date: 01/09/18 Purpose of session/treatment goals addressed:: Purpose of session was to assess pt's current symptoms and stressors. Other topics: identifying treatment progress, aftercare, and goal setting. Eye Contact:: Fair Motor Activity:: Appropriate Appearance:: Casual Speech:: Appropriate Mood:: Anxious Affect:: Congruent Thoughts:: Linear, Logical, No evidence of hallucinations/delusions noted Staff Interventions:: Therapist used open ended questions to elicit pt's current symptoms and stressors. Therapist elicit's pts thoughts about treatment progress and what areas would like to continue to focus on while in IOP. Therapist inquired pt's current plan for follow up care after discharges from [facility] level of care. Therapist elicited a goal for the week. Client Response:: Pt reported he is feeling better about his medication concern because he was able to work things out with the IOP nurse to make sure he doesn't run out of his medications. Pt shared he had a positive weekend in which he went to roman catholic services, hung out with friends, and started to read two books he recently bought. Pt reported Tuesday he felt depressed, but attributes the depressed mood to not being able to take his medications consistently since he was running out of it. Pt reported he has met with his outpatient counselor last week and plans to continue to meet with her weekly with a focus on EMDR. Pt agreeable to call to schedule an appointment with a psychiatrist. Pt reported he recognizes he is doing better with improved mood stability, increased social interactions, and increased consistency in reframing anxious thought patterns. Pt reports anxiety about returning to work. Pt expressed concerned about potentially being drowsy due to his medications and how that could impact his ability to complete tasks. Pt reported also an overall generalized anxiety about returning to work after being gone for several weeks. Risks/Concerns:: Pt denies suicidal ideation, plan or intention to date. Progress Toward Goals/Plan:: Pt has demonstrated progress with reporting decreased depression, improved awareness of his anxious and depressed thought patterns, and increasing social interactions. Pt's anxiety seems to have increased slightly given pt will be returning to work soon. Pt to continue IOP level of care to solidfy aftercare, decrease anxiety, and prevent decompensation. Time Stopped:: 13:00
--- NOTE | 2018-01-10 09:07 | BH.SGPN.GN ---
Behaviors/Verbalizations/Mental Status: [] Eye contact is good. Motor activity is appropriate. Appearance is neat. Speech is Appropriate. Mood is anxious. Affect is congruent. Thoughts are linear and logical. No evidence of psychosis. Reviewed daily check in sheet and no reports of suicidal ideations or intent. Client Response/Progress/Benefit: [] Pt was an active participant in group discussion on gas lighting which is when a person manipulates (someone) by psychological means into questioning their own sanity. Emotion for today is relieved. He discussed some stressors related to running out of his medications however this was remedied by program nurse yesterday. Reports that daily symptoms of anxiety continues to effect functioning. Also reports that sleep continues to effect functioning as well. Benefited from group support and encouragement. Limited progress noted per pt as he has noticed a regression in the past 2 weeks. Will continue in IOP to maintain safety, prevent decompensation, and improve functioning to return to work. Narrative Note: []
--- NOTE | 2018-01-10 10:10 | BH.SGPN.GN ---
Behaviors/Verbalizations/Mental Status: []Eye contact is good. Motor activity is appropriate. Appearance is casual. Speech is Appropriate. Mood is anxious. Affect is congruent. Thoughts are linear and logical. No evidence of psychosis. Client Response/Progress/Benefit: []Pt engaged throughout session as evidenced by pt contributing to discussion and engaging in group activity. Pt connected with the quote that we can create problems that aren't there just by the way we think. 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 Pt connected with the problem solving method, recognizing sometimes simple is needed. When processing activity pt noted importance of not giving up even when it seems the solution is impossible to identify. Pt seemed to benefit from increased awareness of a problem solving method. Narrative Note: []
--- NOTE | 2018-01-10 11:20 | BH.SGPN.GN ---
Behaviors/Verbalizations/Mental Status: []Eye contact is good. Motor activity is appropriate. Appearance is casual. Speech is Appropriate. Mood is anxious. Affect is congruent. Thoughts are linear and logical. No evidence of psychosis. Client Response/Progress/Benefit: []Pt listened attentively to others and contributed to discussion. Pt reported his problem to be: lack of self confidence. Pt identified steps can take to reach solution of poor self confidence include: finishing shelving project, finish decorating room, regularly workout, complete self-help books about self confidence, and build new social connections. Pt reported he believed the steps he identified to increase self confidence are manageable. Pt seemed to benefit from identifying ways to overcome one of his identified problems. Pt to continue IOP level of care to maintain gains, increase social connections and prevent decompensation. Narrative Note: []
--- NOTE | 2018-01-11 09:02 | BH.SGPN.GN ---
Behaviors/Verbalizations/Mental Status: []Client alert and oriented, neatly dressed and groomed. Eye contact fair. Motor activity slowed. Speech short remarks. Affect flat, mood irritable, anxious. Thoughts linear, logical, no signs of hallucinations or delusions. Reviewed client?s symptom tracker, no risk for suicidal ideation, plan, or intent as of 01/11/18. Client Response/Progress/Benefit: []Client responded mostly well to session, participating, but less active in discussion compared to other sessions. Client reports feeling ?agitated? today due to multiple ongoing stressors. Client reluctant to share about all of his stressors at first, but then he identified car issues, work, and medication as current stressors. Client reported most of his stressors are out of his control and involve waiting which is contributing to client?s agitation. The group helped client identify strategies to cope with agitation and stressors out of one?s control. Client identified positives for today including reading and taking notes about bipolar disorder from the [employer] book and getting measurements for a project at home. Client appeared to benefit from receiving coping strategies. Client to continue IOP as he has demonstrated progress with implementing healthy coping skills, but he continues to struggle with managing stressors out of his control.
--- NOTE | 2018-01-11 10:08 | BH.SGPN.GN ---
Behaviors/Verbalizations/Mental Status: []Client alert and oriented, neatly dressed and groomed. Eye contact fair. Motor activity appropriate. Speech within normal limits. Affect constricted, mood irritable. Thoughts linear, logical, no signs of hallucinations or delusions. Client Response/Progress/Benefit: []Client responded somewhat well to session, quiet, but taking notes. Client appeared to connect with the quote and topic of cognitive distortions nodding to comments made by peers. Client shared one can learn to challenge and reframe negative thinking. Client helped the group discuss the most common types of distortions, but he declined to share which distortions he most often uses. Client shared his agitation was impacting his engagement in group today. Client appeared to benefit from gaining insight to the cognitive distortions he uses and how they impact mental health. Client to continue IOP to increase emotional regulation and generalization of healthy coping skills.
--- NOTE | 2018-01-11 11:15 | BH.SGPN.GN ---
Behaviors/Verbalizations/Mental Status: [Client willing to attend session, however appearing distant and having difficulty engaging AEB limited engagement and input provided. Fair, often avoidant eye contact. Casual attire, appropriate grooming/hygiene. No psychomotor abnormalities, WNL. Client speech forced and on edge when speaking, mood agitated, anxious, irritable. Affect constricted. Client thoughts preoccupied and significant for rumination, no evidence of delusions or hallucinations.] Client Response/Progress/Benefit: [Client receptive of session, passive participant and limited in engagement throughout. Client attentive during discussion reviewing potential barriers in combating distorted thoughts as well as strategies for improving ability to do so, however did not provide verbal input. He benefitted from the patience and support provided by the group. Client displaying progress in willingness to engage and increased positivity as a result. Client recommended continued focus on implementing thought challenging strategies in times of increased stress and anxiety.] Narrative Note: []
--- NOTE | 2018-01-13 13:16 | PCM.PN.BLA ---
Progress Note Patient is seen in follow-up for bipolar 1 disorder, anxiety, PTSD. History is been obtained per interview with patient, discussion with staff, review of chart. Case discussed with treatment team. Chief complaint-mood symptoms and anxiety I feel like my manic episodes are not around. Interim history Reports mood stability over the past 3 weeks. Overall decreased irritability and agitation. Some depressive symptoms persist but of decreased intensity. Reports overall feeling hopeful and relieved. Continued ruminative anxiety regarding interpersonal relationship issues. Managing with coping skills gained through IOP. Anticipates return to work January 23 3 days/week and full-time return to work February 13. No suicidal or homicidal ideation and no symptoms consistent with psychosis. Sleeping from 10 PM to 6:30 AM. Describes sleep as great. Attributes improvement to routine and medications. Appetite normal. Denies nausea vomiting or diarrhea. Consuming 2 cups of caffeinated coffee in the morning. Denies ingestion of alcohol. Mental status exam Alert and oriented . No acute distress. Ambulatory with normal gait and station. Appears stated age. Casually dressed and groomed. Appropriate hygiene. Cooperative with interview. Good eye contact. No psychomotor agitation or retardation. Mood widely depressed but improved. Affect congruent. Speech is clear and with regular rate and rhythm. Language fluent. Thought process organized. Associations logical. Thought content significant for ruminative anxiety. No suicidal or homicidal ideation related or detected. No symptoms consistent with psychosis noted or detected. Immediate recent and remote memory grossly intact. Attention and concentration are fair. Estimated intelligence and fund of knowledge average. Judgment and insight good. Labs and testing Lab work will be requested from recent inpatient hospitalization. Further lab work will be obtained as needed. Diagnosis Bipolar 1 disorder F 31.9 Anxiety PTSD Plan Continue IOP as the structured setting is necessary to maintain gains and prevent decompensation. Risk-benefit alternative of medications discussed with patient. Patient acknowledges understanding. Continue Abilify 20 mg p.o. daily. No evidence of EPS. Encouraged to establish with outpatient psychiatric providers for when IOP complete. Letter provided for return to work. Patient acknowledges understanding and is in agreement with plan. Feels able to maintain safety. Agrees to seek help or emergency care feeling unsafe to self or others. 20 minutes of Insight oriented psychotherapy provided regarding relationship dynamics.
--- NOTE | 2018-01-13 14:21 | BH.DR.ITP ---
Initial Treatment Plan - Patient Information Visit Information: ADMISSION DATE: EXPECTED LOS: 4-6 weeks Diagnoses:: Bipolar 1 disorder F 31.9 - Problems/Symptoms Problem #1:: Instability of mood Symptom:: Mixed mood symptoms and mood cycling, depression, sleep disruption, over activation, increased energy, irritability Problem #2:: Anxiety Symptom:: Rumination
--- NOTE | 2018-01-16 09:10 | BH.SGPN.GN ---
Behaviors/Verbalizations/Mental Status: [] Eye contact is good. Motor activity is appropriate. Appearance is casual. Speech is Appropriate. Mood is anxious. Affect is congruent. Thoughts are linear and logical. No evidence of psychosis. Reviewed daily check in sheet and no reports of suicidal ideations or intent. Client Response/Progress/Benefit: [] Pt was an active participant in group discussion. Provided appropriate feedback to peers. Emotion for today is positive. States that he is feeling better emotionally than he was last week. Shared some stressors and anxiety related to returning to work next week however feels that he is ready. Returning to work on reduced schedule when attending program is comforting to him. Progress noted per pt report. Benefited from group support and encouragement. Will continue in IOP to maintain gains and transition back to work. Narrative Note: []
--- NOTE | 2018-01-16 10:20 | BH.SGPN.GN ---
Behaviors/Verbalizations/Mental Status: []Client alert and oriented, neatly dressed and groomed. Eye contact good. Motor activity appropriate. Speech within normal limits. Affect congruent- smiling, mood euthymic. Thoughts linear, logical, no signs of hallucinations or delusions. Client Response/Progress/Benefit: []Client responded well to session, active participant. Client helped the group identify things in life that can keep a person stuck such as depression, self-doubt, and isolation. Client reported negative thought patterns keep people stuck because ?any thought will fuel my behaviors and emotions.? Client?s negative thought patterns that have kept him stuck are ?I?ll never overcome my obstacles? ?I?ll never reach my goals? ?I?m not as good as?? Client stated ?these thoughts used to be my reality? but now client can challenge and replace them. Client appeared to benefit from reflecting on his progress of challenging negative thoughts. Client to continue IOP to promote consistent application of healthy coping skills.
--- NOTE | 2018-01-16 11:25 | BH.SGPN.GN ---
Behaviors/Verbalizations/Mental Status: []Client alert and oriented, neatly dressed and groomed. Eye contact good. Motor activity appropriate. Speech within normal limits. Affect full, mood euthymic. Thoughts linear, logical, no signs of hallucinations or delusions. Client Response/Progress/Benefit: []Client responded well to session, active in discussion. Client participated in a thought challenging activity to help client reframe a thought that has kept him stuck. Client selected ?I?m not as good as?? as the thought keeping him most stuck. Client shared the thought is unrealistic stating, ?I?m not a carbon copy of others.? Client stated when he had this thought in the past it led to dwelling, isolation, missing opportunities, and depression. Client replaced this thought with a more realistic, positive thought of ?I?m not as good at some things as them, and I don?t have to be.? Client shared this thought would help client increase self-confidence, socialization, and reduce self-doubt. Client appeared to benefit from learning strategies to replace one of the negative thoughts keeping him stuck. Progress noted as shown by client?s reported of increased ability to replace cognitive distortions. Recommended to continue IOP to increase mood stability and consistent application of healthy coping skills.
--- NOTE | 2018-01-17 09:00 | BH.SGPN.GN ---
Behaviors/Verbalizations/Mental Status: []Client alert and oriented, neatly dressed and groomed. Eye contact good. Motor activity appropriate. Speech within normal limits. Affect bright-smiling, mood euthymic. Thoughts linear, logical, no signs of hallucinations or delusions. Reviewed client?s symptom tracker, no risk for suicidal ideation, plan, or intent as of 01/17/18. Client Response/Progress/Benefit: []Client responded well to session, participating in activity and discussion. Client reported enjoying the mindfulness-G.L.A.D activity as it helped client ?pay attention to the good.? Client reports feeling ?hopeful? today. Client identified daily positives including spending time with friends yesterday, returning to work soon, and reading more chapters in the [employer] book. Client stated the book has helped client learn how to be his own advocate when managing his bipolar disorder. Client?s current stressor is not knowing what is wrong with his car. Client received supportive statements from the group regarding his stressor. Client appeared to benefit from connecting with peers and reflecting on progress. Progress noted in client?s increased mood stability and ability to manage stressors. Client to continue IOP as he can continue to increase emotional regulation skills and increase consistency of coping skill implementation.
--- NOTE | 2018-01-17 10:00 | BH.SGPN.GN ---
Behaviors/Verbalizations/Mental Status: [] Eye contact is good. Motor activity is appropriate. Appearance is neat. Speech is Appropriate. Mood is anxious. Affect is congruent. Thoughts are linear and logical. No evidence of psychosis. Reviewed daily check in sheet and no reports of suicidal ideations or intent. Client Response/Progress/Benefit: [] Pt was an active participant in group activities. When drawing his current reality pt ange a mountain with certain sections which had thunderstorms and other inclement weather. Pt placed himself close to the top of this mountain and stated that thanks to the skills learned in IOP and medications he feels that he has made it through several emotional obstacles and feels hopeful about the future. His desired reality drawing was a grassy meadow with a stream and the mountain in the distance. Pt states that while he is off the mountain in his desired reality he always wants to make sure that he remembers his accomplishments. Progress noted per pt report. Benefited from group by increasing self-awareness of current mental state and her desired mental state. Narrative Note: []
--- NOTE | 2018-01-17 11:00 | BH.SGPN.GN ---
Behaviors/Verbalizations/Mental Status: [] Eye contact is good. Motor activity is appropriate. Appearance is casual. Speech is Appropriate. Mood is euthymic. Affect is full. Thoughts are linear and logical. No evidence of psychosis. Client Response/Progress/Benefit: [] Pt was an active participant in group activity. Pt was able to identify obstacles that are keeping him from reaching his desired reality. Pt reports obstacles to desired reality are holding onto the past, should statements, magnifying problems, black and white thinking, lack of interest, loneliness, labeling, fear of failure, self-doubt, and unjustified anxiety. Pt along with peers worked together to come up with some strategies to overcome these obstacles. Benefited from identifying obstacles to desired reality and developing strategies to overcome obstacles. Will continue in IOP to maintain gains and prevent decompensation. Narrative Note: []
--- NOTE | 2018-01-18 09:00 | BH.SGPN.GN ---
Behaviors/Verbalizations/Mental Status: []Client alert and oriented, neatly dressed and groomed. Eye contact good. Motor activity appropriate. Speech within normal limits. Affect congruent, mood euthymic, anxious. Thoughts linear, logical, no signs of hallucinations or delusions. Reviewed client?s symptom tracker, no risk for suicidal ideation, plan, or intent as of 01/18/18. Client Response/Progress/Benefit: []Client responded well to session, active participant. Client reports feeling ?anxious but hopeful? as client has a return to work meeting with his employer this afternoon. Client stated he is getting anxious thoughts about the meeting, but has been able challenging them. Client reported ?I think I?ll always have this slow drumbeat of anxiety? which other group members related to as well. The group discussed how acceptance and awareness can help someone manage ongoing mild anxiety symptoms. Client identified current positives such as spending time with friends yesterday and learning Romanian. Client appeared to benefit from connecting with peers and gaining insight to managing ongoing anxiety. Progress noted as shown by client?s reduced isolation and generalization of healthy coping skills. Client recommended to continue IOP to help client reduce anxiety while transitioning back to work.
--- NOTE | 2018-01-18 10:15 | BH.SGPN.GN ---
Behaviors/Verbalizations/Mental Status: [] Pt eye contact good, casually dressed, motor activity appropriate, speech normal rate and tone, mood euthymic, congruent affect, thoughts linear and intact, no evidence of delusions or hallucinations. Client Response/Progress/Benefit: [] Client contributed at times during discussion, mostly took notes and listened to others. Client reported he believes there is certain circumstances in which there may be a right time to make a change however recognizes people can utilize that idea of waiting for the right time as an excuse or rationalization to not move forward with the identified change. Client connected various emotions to the stages of change and could identify the impact specific emotions can have on the change process. Client seemed to benefit from increased awareness of stage of change and potential barriers to making change. Narrative Note: []
--- NOTE | 2018-01-18 11:25 | BH.SGPN.GN ---
Behaviors/Verbalizations/Mental Status: [] Pt eye contact good, casually dressed, motor activity appropriate, speech normal rate and tone, mood euthymic, congruent affect, thoughts linear and intact, no evidence of delusions or hallucinations. Client Response/Progress/Benefit: []Pt active participant AEB contributions throughout session, worked cooperatively with others and listened to others. Pt reported keeping a positive attitude as a raya strategy to help manage the challenges associated with change. Pt also related to peers comments about communication and support as other helpful strategies when it comes to making changes. Pt seemed to benefit from learning about decisional balance tool and other strategies discussed that could help with making personal changes. Pt to continue IOP level of care to maintain gains and prevent decompensation. Narrative Note: []
--- NOTE | 2018-02-02 10:17 | BH.SGPN.GN ---
Behaviors/Verbalizations/Mental Status: [Client maintained fair eye contact, casually dressed, motor activity appropriate -closed, speech normal rate and tone, mood euthymic, anxious, congruent affect, thoughts linear and intact, no evidence of delusions or hallucinations.] Client Response/Progress/Benefit: [Client attentive, though quiet during initial discussion, able to increase engagement when discussing factors impacting stress managements and pro/cons of stress. Provided definition of eustress as the ?good stressors that motivate you?. Appeared to benefit from increasing awareness of impact stressors have on mental health and ability to function. Client identified current stressors to include: mental health issues, replacing unhealthy coping by implementing healthier choices, unhealthy self-talk, and work problems. Client reported when he becomes overwhelmed with stress he tends to shut down; however, reports progress in ability to manage stressors since beginning IOP tx. Continued IOP to maintain stability and continued to promote healthy choices and change behaviors.] Narrative Note: []
--- NOTE | 2018-02-02 11:16 | BH.SGPN.GN ---
Behaviors/Verbalizations/Mental Status: [Eye contact good, casually dressed - client grew a mustache, motor activity appropriate - closed, speech normal rate and tone, mood euthymic, congruent affect, thoughts linear and intact, no evidence of delusions or hallucinations] Client Response/Progress/Benefit: [Client well engaged and active throughout session AEB contributions to discussion, cooperating with others in activity, and providing supportive feedback and suggestions to fellow participants. Client did well to make connections between managing stressors in challenge activity and doing so in daily life. Discussed importance of asking for help and asserting needs with supports as strategies in activity that translate to managing stress in life. Client added to discussion regarding additional stress management strategies and noted that he could relate to the need for prioritizing stressors to avoid burnout. Benefitted from improving ability to identify knowing what skills will be most effective in the moment. Continue IOP level of care to decrease depression, increase use of healthy skills, and prevent decompensation.] Narrative Note: []
--- NOTE | 2018-02-02 15:42 | BH.MDN_ITS ---
Multi-Disciplinary Note - Note 30-min Individual Time Started:: 09:00 Date: 02/02/18 Purpose of session/treatment goals addressed:: Purpose of session was to assess current symptoms and stressors. Other topics: treatment progress, calming strategies. Eye Contact:: Good Motor Activity:: Appropriate Appearance:: Casual Speech:: Appropriate Mood:: Anxious Affect:: Congruent Thoughts:: Linear, Logical, No evidence of hallucinations/delusions noted Staff Interventions:: Therapist used open ended questions to elicit pt's current symptoms and stressors. Therapist processed positives and stressors associated with returning to work. Therapist provided education about internal coping skills to help manage anxiety in the moment that included breathing techniques, mindfulness skills, and grounding tools. Therapist brainstormed with pt about various activities he could incorporate in his daily or weekly schedule to give him something to look forward to doing. Therapist provided support by using active listening and validating emotions. Client Response:: Pt reported overall the past two weeks have been going alright. Pt elaborated he has returned to work last week and has experienced increased anxiety throughout his day. Pt shared he is worried he won't be able to perform as well as he could when in a hypomanic state now that his moods are stable. 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 Pt shared he is still trying to get accustomed to his new normal of not having the extreme mood up and down shifts. Pt reported besides having the increased anxiety, he does notice improvement with decreased depression, able to complete tasks at work, and overall mood stability. Pt reported he is willing to practice various internal calming skills provided to him by therapist to help manage his anxiety throughout the day. Pt stated he has also had thoughts since going back to work is this how my life is going to be in regards to sleep, eat, work, sleep and feeling mundane. Through discussion pt willing to explore different actitivies he can add to his day to give him something to look forward to each day. Risks/Concerns:: Pt denies suicidal ideation, plan or intention to date. Progress Toward Goals/Plan:: Pt demonstrating progress with reporting improved mood stability, able to return to work for the past two weeks, and continued awareness of his unhealthy thought patterns. Pt reports experiencing increased anxiety since returning to work. Pt to continue IOP level of care to maintain gains, increase use of healthy coping, and prevent decompensation. Time Stopped:: 09:30
--- NOTE | 2018-02-03 09:10 | BH.SGPN.GN ---
Behaviors/Verbalizations/Mental Status: [] Eye contact is good. Motor activity is appropriate. Appearance is casual. Speech is Appropriate. Mood is anxious. Affect is congruent. Thoughts are linear and logical. No evidence of psychosis. Reviewed daily check in sheet and no reports of suicidal ideations or intent. Client Response/Progress/Benefit: [] Pt was an active participant in group discussion. Emotion for today is uneventful and stable. Shared with the group that he was extremely tired yesterday and ended up sleeping 10 plus hours. Denies that it was related to depression stating that the sleep was beneficial. Provided feedback to some newer group members regarding internal coping skills. Benefited from group support and encouragement. Progress noted per pt report. Will continue in IOP to maintain gains and transition to full-time work. Plan is for discharge next week. Narrative Note: []
--- NOTE | 2018-02-03 10:20 | BH.SGPN.GN ---
Behaviors/Verbalizations/Mental Status: [] Pt eye contact good, casually dressed, motor activity appropriate, speech normal rate and tone, mood euthymic, congruent affect, thoughts linear and intact, no evidence of delusions or hallucinations. Client Response/Progress/Benefit: []Pt listened attentively to peers and contributed to discussion at times. Pt connected with that quote that it would be important to ensure people understand what he has communicated because often he assumes people understand what he had said. Pt shared it could be helpful to clarify with others to make sure what he was trying to communicate to others was understood. Pt added his thoughts to discussion about the four different types of communication (passive, passive-aggressive, aggressive, and assertive). Pt reported passive communication leads to needs not being met. Shared passive-aggressive communication is self-destructive because won't get needs met and in the long-term could cause increased problems for self. Pt seemed to benefit from increased awareness of the different types of communication as well as learning about benefits and costs of each style. Narrative Note: []
--- NOTE | 2018-02-03 11:25 | BH.SGPN.GN ---
Behaviors/Verbalizations/Mental Status: []Eye contact is good. Motor activity is appropriate. Appearance is casual. Speech is Appropriate. Mood is anxious. Affect is congruent. Thoughts are linear and logical. No evidence of psychosis. Client Response/Progress/Benefit: []Pt listened attentively to others and contributed thoughts and ideas to discussion. Pt identified he now communicates more assertively with others because he now can see the benefits of being assertive versus keeping his thoughts and feelings inside. Pt shared he used to communicate passively which resulted in his needs not being met. Pt engaged during activity and reported it's important to find creative ways to communicate to others about his experience of mental health. Pt seemed to benefit from reflecting on the progress he has made in regards to how he communicates. Pt to continue IOP level of care to maintain gains and prevent decompensation. Narrative Note: []
== END 2018-02-03 23:59 ==
LOC: BHIOP 09:00
PROVIDERS: Family Provider Family Medicine; PCP Family Medicine; Visit Provider Psychiatry & Neurology Psychiatry
DX: F31.9 Bipolar disorder, unspecified (principal); F41.9 Anxiety disorder, unspecified; F43.10 Post-traumatic stress disorder, unspecified
CPT/HCPCS: H0035; 90832; 90853

== ENCOUNTER 2018-02-09 09:00 | Outpatient (RCR) | payer OTHER, SELFPAY ==
--- NOTE | 2018-02-09 09:05 | BH.SGPN.GN ---
Behaviors/Verbalizations/Mental Status: []Client alert and oriented, neatly dressed and groomed. Eye contact good. Motor activity appropriate. Speech within normal limits. Affect full, mood euthymic. Thoughts linear, logical, no signs of hallucinations or delusions. Reviewed client?s symptom tracker, no risk for suicidal ideation, plan, or intent as of 02/09/18. Client Response/Progress/Benefit: []Client responded well to session, positive contributions. Client reports feeling ?stable? today sharing he has had stressors, but client feels like he is coping with them well. Client shared work is a ?positive and a stressor? as client feels overwhelmed at times, but he has been able to use the skills learned in IOP to manage anxiety and frustration. Client?s positives today were utilizing 5-4-3-2-1 at work, getting good sleep, and challenging anxious thoughts more easily. Client reflected on progress since starting IOP and acknowledged improvements in outlook and mood. Client appeared to benefit from reflecting on gains made in IOP. Client to discharge from IOP tomorrow as he has made significant progress, but he can benefit from one more IOP day to reinforce healthy coping skills and establish aftercare.
--- NOTE | 2018-02-09 10:10 | BH.SGPN.GN ---
Behaviors/Verbalizations/Mental Status: [] Pt eye contact good, casually dressed, motor activity appropriate, speech normal rate and tone, mood euthymic, congruent affect, thoughts linear and intact, no evidence of delusions or hallucinations. Client Response/Progress/Benefit: []Pt active participant AEB many contributions to discussion and attentive to others. Pt reported in order to see personal growth one has to work towards seeing progress, won't just wake up and have personal growth. Pt identified challenging negative thoughts as a positive force that can help one more forward in life. Pt reported toxic people could be a negative force that holds one back from moving towards personal growth. When processing activity pt reported a positive force was past experience because he's done the activity before which helped the group be successful. Pt shared in life past experience helps because can learn from past mistakes and successes. Pt seemed to benefit from increased awareness of impact positive and negative forces can have on personal growth. Narrative Note: []
--- NOTE | 2018-02-09 11:12 | BH.SGPN.GN ---
Behaviors/Verbalizations/Mental Status: [] Pt eye contact good, casually dressed, motor activity appropriate, speech normal rate and tone, mood euthymic, congruent affect, thoughts linear and intact, no evidence of delusions or hallucinations. Client Response/Progress/Benefit: [] Client contributed to discussion. Client shared his positive forces include time with family, friends, helping others, support from coworkers, and learning new skills. Client shared his negative forces to hold him back from achieving his desired reality include: Negative self talk, low self-esteem, anxiety, and past trauma. Client reported he feels like he is moving towards progress but is not fully stable. Client identified his school that is going to help him decrease 1 of his negative forces is to continue EMDR therapy until complete to decrease the impact of past trauma has on his functioning. Client seem to benefit from increasing awareness of his personal positive and negative forces as well as identifying a goal that can help him continue to balance and strength in his positive forces. Narrative Note: []
--- NOTE | 2018-02-09 14:39 | BH.AFTERPLAN ---
Aftercare Plan - Demographics Treatment End Date:: 02/10/18 Psychiatrist:: Julianna Watson Psychiatrist Office #:: [phone] [facility] Therapist:: Jena Mcbride Therapist Phone #:: [phone] - Medications Home Medications: Home Medications Aripiprazole [Abilify] 20 mg PO QHS 12/16/17 Lisinopril [Zestril] 5 mg PO DAILY 12/16/17 Metformin HCl [Glucophage] 500 mg PO BIDCM 12/16/17 traZODone [Desyrel] 50 mg PO QHS PRN 12/16/17 - Plan Details Progress/Aftercare Plan Details:: You have shown significant progress throughout your time in [facility]! First of all you have returned to work, which is a huge accomplishment. Being able to return to work is evidence that shows the hardwork you've put into getting better. Overall your moods are more stable and if there are difficulties you now have the tools to implement that helps you overcome those difficulties. Your anxiety and depression have decreased in both intensity and frequency. You have increased awareness of your negative and unhelpful thought patterns. You can challenge or reframe unhelpful thought patterns to more positive and realistic thoughts. You haven't reported having an suicidal thoughts for many weeks! You have put forth more effort to increase social interactions and connections. Significant progress has been seen since starting the program and it will be important to follow up with counseling and psychiatry to help maintain gains and continue to move forward. Strategies for Success:: 1. Reframing negative and anxious thoughts. 2. Qualify the positive - remember it's important to note what is going well, instead of focusing on the negatives. 3. 5,4,3,2,1 grounding tool can help bring you back to the here and now. 4. Step away and regroup. Taking a mindful minute will give you time to clear your mind and go back to the task in a better state of mind. 5. Acceptance of what you cannot change. Remember to not put so much energy into ruminating on things you can't do anything about. 6. Break large goals into smaller manageable parts. 7. Maintain social connections. 8. Refer back to [facility] binder for refresh of skills and strategies. - Appointments Appointments/Referrals to Other Services:: 1. Next week counseling appointment with Preethi Meredith. 2. Remember to schedule appointment for psychiatry at [facility].
--- NOTE | 2018-02-09 14:47 | BH.MDN ---
Multi-Disciplinary Note - Note 30-min Individual Time Started:: 08:30 Date: 02/09/18 Purpose of session/treatment goals addressed:: Purpose of session was to assess pt's current symptoms and stressors. Other topics included: identifying treatment progress, strategies to remain successful, and follow up appointments for aftercare. Eye Contact:: Good Motor Activity:: Appropriate Appearance:: Casual Speech:: Appropriate Mood:: Euthymic Affect:: Congruent Thoughts:: Linear, Logical, No evidence of hallucinations/delusions noted Staff Interventions:: Therapist utilized open ended questions to elicit pt's current symptoms and stressors. Therapist elicited pt's thoughts about treatment progress since starting IOP. Therapist collaborated with pt to identifying strategies and skills that can help pt maintain progress. Therapist inquired pt's appointments for follow up counseling. Client Response:: Pt reported overall things are going good for him currently. Pt shared since returning to work there have been some ups and downs, but mostly reports he is managing his emotions well. Pt reported the fact he has been able to return to work demonstrates progress since starting PHP/IOP programs since he had to be on leave due to mental health symptoms impacting his functioning. Pt reported he still experiences depressed and anxious symptoms but to a decreased intensity and frequency. Pt shared overall his moods are stable so he is not experiencing the extreme highs and lows, having more of a balanced emotional state. Pt identified strategies that can help him maintain progress to include: reframing negative thoughts, qualifying positives, grounding tools, acceptance of what can't change, and breaking large goals into manageable parts. Pt reported he has his counseling appointment with already established outpatient provider for next week. Pt shared he is waiting to hear back from several of the psychiatry offices he has called. Pt reports he will continue to make calls to get established with a psychiatrist. Risks/Concerns:: Pt denies suicidal ideation, plan or intention to date. Progress Toward Goals/Plan:: Pt has made significant progress on treatment goals AEB pt reporting decrease in depressed and anxious symptoms. Pt has returned back to work with ability to manage emotions, be productive, and challenge unhealthy thoughts. Pt utilizes healthy coping skills more consistently and has improved self-awarness.Pt could benefit from continued foucs on increasing his social support network. Plan is for pt to discharge from IOP today. Time Stopped:: 08:55
--- NOTE | 2018-02-09 14:57 | BH.IGGP_ITS ---
Aftercare Plan - Demographics Treatment End Date:: 02/10/18 Psychiatrist:: Julianna Watson Psychiatrist Office #:: [phone] [facility] Therapist:: Jena Mcbride Therapist Phone #:: [phone] - Medications Home Medications: Home Medications Aripiprazole [Abilify] 20 mg PO QHS 12/16/17 Lisinopril [Zestril] 5 mg PO DAILY 12/16/17 Metformin HCl [Glucophage] 500 mg PO BIDCM 12/16/17 traZODone [Desyrel] 50 mg PO QHS PRN 12/16/17 - Plan Details Progress/Aftercare Plan Details:: You have shown significant progress throughout your time in [facility]! First of all you have returned to work, which is a huge accomplishment. Being able to return to work is evidence that shows the hardwork you've put into getting better. Overall your moods are more stable and if there are difficulties you now have the tools to implement that helps you overcome those difficulties. Your anxiety and depression have decreased in both intensity and frequency. You have increased awareness of your negative and unhelpful thought patterns. You can challenge or reframe unhelpful thought patterns to more positive and realistic thoughts. You haven't reported having an suicidal thoughts for many weeks! You have put forth more effort to increase social interactions and connections. Significant progress has been seen since starting the program and it will be important to follow up with counseling and psychiatry to help maintain gains and continue to move forward. Strategies for Success:: 1. Reframing negative and anxious thoughts. 2. Qualify the positive - remember it's important to note what is going well, instead of focusing on the negatives. 3. 5,4,3,2,1 grounding tool can help bring you back to the here and now. 4. Step away and regroup. Taking a mindful minute will give you time to clear your mind and go back to the task in a better state of mind. 5. Acceptance of what you cannot change. Remember to not put so much energy into ruminating on things you can't do anything about. 6. Break large goals into smaller manageable parts. 7. Maintain social connections. 8. Refer back to [facility] binder for refresh of skills and strategies. - Appointments Appointments/Referrals to Other Services:: 1. Next week counseling appointment with Preethi Meredith. 2. Remember to schedule appointment for psychiatry at [facility].
--- NOTE | 2018-02-10 09:05 | BH.SGPN.GN ---
Behaviors/Verbalizations/Mental Status: []Client alert and oriented, neatly dressed and groomed. Eye contact good. Motor activity appropriate. Speech within normal limits. Affect full, mood euthymic. Thoughts linear, logical, no signs of hallucinations or delusions. Reviewed client?s symptom tracker, no risk for suicidal ideation, plan, or intent as of 02/10/18. Client Response/Progress/Benefit: []Client responded well to session, active participant. Client reports feeling ?positive? today as it is client?s last day in [facility]. Client stated, ?I?ve obviously made progress and feel better.? Client identified other current positives to be plans to spend time with family tonight and consistent application of healthy coping skills. Client denied current stressors, ?nothing I can?t manage.? Client appeared to benefit from reflecting on gains made in [facility] and improved management of mental health symptoms. Client to discharge from [facility] today as he has made significant progress towards treatment goals.
--- NOTE | 2018-02-10 10:16 | BH.SGPN.GN ---
Behaviors/Verbalizations/Mental Status: [Client eye contact good, casually dressed, motor activity appropriate, speech normal rate and tone, mood euthymic, affect congruent & bright, thoughts linear, logical, no evidence of delusions or hallucinations.] Client Response/Progress/Benefit: [Client attentive and well engaged in both discussion and activity portions. He did well to contribute to the discussion on the potential impact an ?impossible? or fixed mindset may have in overcoming difficult situations or making progress in maintaining mental health stability. Client identified examples of fixed mindset thoughts that have held him back in the past such as ?I don?t have the capability?. Client did well to challenge this mindset when engaging in the activity portion and appeared to benefit from gaining awareness of the ways fixed thoughts have limited growth and kept him stuck. Progress noted in client more positive and engaged interactions with the group. Client to discharge from IOP program today and is recommended continued use of thought challenging following tx discharge.] Narrative Note: []
--- NOTE | 2018-02-10 11:15 | BH.SGPN.GN ---
Behaviors/Verbalizations/Mental Status: [Client maintained good eye contact, casually dressed, motor activity appropriate, speech normal rate and tone, mood euthymic, anxious, affect congruent, thoughts linear, logical, no evidence of delusions or hallucinations.]] Client Response/Progress/Benefit: [Client attentive and actively engaged in both discussion and growth mindset reflection activity. He did well to work with the group on using cognitive restructuring to reframe example fixed mindset thoughts into growth mindset statements and actively applied this to his own identified fixed thoughts. Client able to ask for assistance when struggling to replace fixed thought of ?Nothing I do makes a difference?. Client receptive of suggestions provided by group and benefitted from discussing strategies to promote a growth mindset in daily life. Client expressed wanting to apply the T.H.I.N.K. acronym to promote ongoing thought challenging. Progress noted in client level of insight and ability to use internal coping mechanisms in challenging negative or fixed thoughts.] Narrative Note: []
--- NOTE | 2018-02-10 15:48 | BH.DS ---
Discharge Summary - Demographics Date of Admission:: 12/20/17 Discharge Date: 02/10/18 Presenting Problems at Admission:: Pt completed [facility] PHP program on 12/16/17 and stepped down to [facility] level of care. At admission pt endorsed depression, anxiety, difficulty concentrating, anhedonia, and low energy. Pt suicidal ideations decreased significantly since PHP. Pt continued to endorse ruminative anxiety about multiple issues. Discharge Diagnoses:: Bipolar 1 disorder F 31.9. Anxiety. 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 - Treatment Progress During Treatment & Response: Pt has shown progress with improved mood stability, no longer experiencing the elevated mood which drops to depressed mood. Pt increased awareness of his negative and anxious thought patterns with ability to reframe and challenge thoughts. Pt utilizing healthy coping strategies to manage mental health symptoms on a more consistent basis. 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 Pt has put forth more effort to increase social interactions and connections. Pt also hasn't reported suicidal ideations in several weeks. Pt responded well to [facility] program as evidenced by pt engaging in discussions, working cooperatively with peers, and contributing his thoughts. Pt often completed assigned homework and generalized the skills learned. Issues Still to be Addressed:: Pt could benefit from continued reinforcement of healthy coping skills and continued focus on challenging and reframing unhelpful thinking patterns. Pt also could benefit from adding extracurricular activities into weekly routine and increasing social network. Discharge Recommendations/Instructions:: Pt encouraged to follow through with Preethi Meredith for outpatient counseling next week. Patient attempted to schedule psychiatry with several places that were provided to him by [facility] therapist weeks ago, but pt reported no one returned his call. Pt provided new resource for psychiatry and agreeable to call and schedule appointment. Discharge Handout: Complete Discharge Handout with client on aftercare options and continuity of care.
--- NOTE | 2018-02-13 11:48 | BH.DS_ITS ---
Discharge Summary - Demographics Date of Admission:: 12/20/17 Discharge Date: 02/10/18 Presenting Problems at Admission:: Pt completed [facility] PHP program on 12/16/17 and stepped down to [facility] level of care. At admission pt endorsed depression, anxiety, difficulty concentrating, anhedonia, and low energy. Pt suicidal ideations decreased significantly since PHP. Pt continued to endorse ruminative anxiety about multiple issues. Discharge Diagnoses:: Bipolar 1 disorder F 31.9. Anxiety. PTSD Reason for Discharge:: Pt has made significant progress on treatment goals in 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 level of care. - Treatment Progress During Treatment & Response: Pt has shown progress with improved mood stability, no longer experiencing the elevated mood which drops to depressed mood. Pt increased awareness of his negative and anxious thought patterns with ability to reframe and challenge thoughts. Pt utilizing healthy coping strategies to manage mental health symptoms on a more consistent basis. 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 Pt has put forth more effort to increase social interactions and connections. Pt also hasn't reported suicidal ideations in several weeks. Pt responded well to [facility] program as evidenced by pt engaging in discussions, working cooperatively with peers, and contributing his thoughts. Pt often completed assigned homework and generalized the skills learned. Issues Still to be Addressed:: Pt could benefit from continued reinforcement of healthy coping skills and continued focus on challenging and reframing unhelpful thinking patterns. Pt also could benefit from adding extracurricular activities into weekly routine and increasing social network. Discharge Recommendations/Instructions:: Pt encouraged to follow through with Preethi Meredith for outpatient counseling next week. Patient attempted to schedule psychiatry with several places that were provided to him by [facility] therapist weeks ago, but pt reported no one returned his call. Pt provided new resource for psychiatry and agreeable to call and schedule appointment. Discharge Handout: Complete Discharge Handout with client on aftercare options and continuity of care.
== END 2018-03-06 23:59 ==
LOC: BHIOP 09:00
PROVIDERS: Family Provider Family Medicine; PCP Family Medicine; Visit Provider Psychiatry & Neurology Psychiatry
DX: F31.9 Bipolar disorder, unspecified (principal); F41.9 Anxiety disorder, unspecified; F43.10 Post-traumatic stress disorder, unspecified
CPT/HCPCS: H0035; 90832; 90853

== ENCOUNTER → 2020-08-30 07:01 | Outpatient (CLI) | payer OTHER, SELFPAY ==
[2020-08-30 07:57] LABS: Creatinine, Serum 1.04 mg/dL (0.70-1.30); EST Glomerular Filtration Rate 87 mL/min (>60); Est Glom Filt Rate - Afr Amer 105 mL/min (>60); Thyroid Stim Hormone (TSH) 1.96 uIU/mL (0.358-3.74)
== END ==
PROVIDERS: PCP Family Medicine
DX: Z79.899 Other long term (current) drug therapy (principal)
CPT/HCPCS: 36415; 80178; 82565; 84443

== ENCOUNTER → 2021-05-04 10:06 | Outpatient (CLI) | payer OTHER, SELFPAY ==
[2021-05-04 10:59] LABS: Hematocrit 49.2 % (40-54); Hemoglobin 16.9 g/dL (13.0-16.5); Mean Corp Hgb Conc 34.3 g/dL (32-36); Mean Corpuscular Hgb 28.7 pg (27.0-32.0); Mean Corpuscular Volume 83.7 fL (80-94); Mean Platelet Vol. 10.3 fl (6.2-12.0); Platelet Count 219 K/mm3 (150-450); RBC Distribution Width CV 12.4 % (11.6-14.6); RBC Distribution Width SD 37.3 fl (35.1-43.9); Red Blood Count 5.88 M/mm3 (4.6-6.2); White Blood Count 8.3 K/mm3 (4.4-11.0)
[2021-05-04 11:38] LABS: Creatinine, Serum 0.97 mg/dL (0.70-1.30); EST Glomerular Filtration Rate 93 mL/min (>60); Est Glom Filt Rate - Afr Amer 113 mL/min (>60)
== END ==
PROVIDERS: PCP Family Medicine
DX: Z79.899 Other long term (current) drug therapy (principal)
CPT/HCPCS: 36415; 80178; 82565; 84443; 85027

== ENCOUNTER → 2021-06-11 10:30 | Outpatient (CLI) | payer OTHER, SELFPAY ==
[2021-06-11 11:31] LABS: Anion Gap 3 (5-15); BUN 13 mg/dL (7-18); BUN/Creat Ratio 12.7 RATIO (10-20); Calcium,Total 8.9 mg/dL (8.5-10.1); Chloride 105 mmol/L (98-107); Creatinine, Serum 1.02 mg/dL (0.70-1.30); EST Glomerular Filtration Rate 88 mL/min (>60); Est Glom Filt Rate - Afr Amer 107 mL/min (>60); Glucose 178 mg/dL (74-106); Potassium 4.2 mmol/L (3.5-5.1); Sodium Level 136 mmol/L (136-145); Thyroid Stim Hormone (TSH) 1.85 uIU/mL (0.358-3.74)
== END ==
PROVIDERS: PCP Family Medicine
DX: Z79.899 Other long term (current) drug therapy (principal)
CPT/HCPCS: 36415; 80048; 80178; 84443

== ENCOUNTER 2023-05-30 03:14 | Emergency (ER) | payer OTHER, SELFPAY ==
[2023-05-30 03:18] VITALS: BP 143/94; PULSE 126; RESP 18; TEMP 36.2; O2SAT 95; BMI 39.8
--- NOTE | 2023-05-30 03:19 | EDS_ITS ---
HPI HPI - GI History of Present Illness Chief Complaint: Nausea/Vomiting Informant: patient Abdominal Pain/Flank Pain Onset: Today and Hours (4) Context: Sudden Onset Timing: Continuous Quality: Cramping Location: RLQ and LLQ Worsened by: Nothing Relieved by: - (Vomiting) Nausea/Vomiting/Emesis GI Symptom: Positive for Nausea and Vomiting Quality: Positive for Nonbilious; Negative for Blood streaks, Coffee ground or Hematemesis Diarrhea/Melena/Hematochezia GI Symptom: Negative for Diarrhea, Melena or Hematochezia Associated Symptoms Associated Symptoms: Negative for Dysuria, Frequency or Hematuria Narrative Narrative: Patient presents with abdominal pain, nausea, and vomiting that began tonight. Patient states it began approximately 4 hours prior to arrival. Patient states it began rather suddenly. Patient describes his pain as cramping. Patient states it is mainly over the lower abdomen and periumbilical area. Patient states nothing makes it worse. Patient states his pain gets better with vomiting. Patient states he is having difficulty keeping any food or fluids down. Patient denies any fevers or chills. Patient denies any diarrhea, melena, or hematochezia. Patient states he has taken Pepto-Bismol with no improvement. [facility] Medical History Anxiety Bipolar 1 disorder DM2 (diabetes mellitus, type 2) HTN (hypertension) Post traumatic stress disorder (PTSD) Home Medications lisinopril 5 mg tablet 5 mg PO DAILY hypertension 12/16/17 [History Last Taken Unknown] metformin 500 mg tablet 500 mg PO BIDCM diabetes 12/16/17 [History Last Taken Unknown] bupropion HCl 150 mg 24 hr tablet, extended release 150 mg PO DAILY 05/30/23 [History Last Taken Unknown] buspirone 30 mg tablet 30 mg PO BID 05/30/23 [History Last Taken Unknown] ciprofloxacin HCl 500 mg tablet 500 mg PO BID #20 TABLETS 05/30/23 [Rx Last Taken Unknown] glimepiride 1 mg tablet 1 mg PO DAILY 05/30/23 [History Last Taken Unknown] lamotrigine 200 mg tablet 200 mg PO DAILY 05/30/23 [History Last Taken Unknown] lithium carbonate 450 mg tablet,extended release 450 mg PO BID 05/30/23 [History Last Taken Unknown] metronidazole 500 mg tablet 500 mg PO Q6H #40 tabs 05/30/23 [Rx Last Taken Unknown] Allergy/AdvReac Type Severity Reaction Status Date / Time aripiprazole [From Abilify] AdvReac Other Verified 05/30/23 03:17 Surgical History no surgical history no surgical history Social History Smoking Status: Never smoker ROS ROS ED Constitutional Constitutional ED: Denies chills or fever(s) Eyes Eyes: Denies blurry vision or change in vision ENT ENT ED: Denies rhinorrhea or sore throat Cardiovascular Cardiovascular: Denies chest pain or palpitations Respiratory/Chest Respiratory/Chest: Denies cough or dyspnea Gastrointestinal Gastrointestinal: Reports abdominal pain, nausea and vomiting; Denies diarrhea or melena Genitourinary Genitourinary ED: Denies dysuria or hematuria Musculoskeletal Musculoskeletal: Denies back pain or neck pain Integumentary Denies abscess or rash Neurologic Neurologic: Denies headache(s) or weakness Allergic/Immunologic Allergic/Immunologic ED: Denies mouth swelling or urticaria EXAM Physical Exam Const Vital Signs: 05/30/23 03:18 05/30/23 03:49 05/30/23 05:49 Temperature 97.1 F L 98.4 F Temperature Source Temporal Tympanic Pulse Rate 126 H 126 H Respiratory Rate 18 16 Blood Pressure 143/94 H 127/82 H Blood Pressure Mean 110 97 Pulse Ox 95 95 Oxygen Delivery Method Room Air Positive well nourished, well developed and obese General Appearance ED: well developed and NAD Nutritional Appearance: obese HEENT Reports moist mucous membranes Neck supple and no JVD Resp normal respiratory effort and clear to auscultation bilaterally Cardio regular rhythm Rate: tachycardic GI non-distended Palpation: soft and tender LLQ, LUQ and periumbilical; Negative for guarding or rebound tenderness present Extremity full ROM Neuro CN's II-XII intact bilaterally, moves all extremities and no sensory deficits noted Sensorium / Orientation: alert, oriented to person, oriented to place and oriented to time Motor Exam: strength 5/5 throughout Psych mental status grossly normal MDM MDM MDM Narrative Medical decision making narrative: Differential diagnosis includes gastroenteritis, urinary tract infection, viral illness, diverticulitis, diabetic ketoacidosis, and hyperosmolar hyperglycemic nonketotic state. CBC will be obtained to assess for leukocytosis and anemia. Comprehensive metabolic profile will be obtained to assess for hepatic function, renal function, and electrolyte abnormality. Lipase will be obtained to assess for pancreatitis. Serum acetone will be obtained to assess for ketoacidosis. Urinalysis will be obtained to assess for urinary tract infection and hematuria. CT scan of the abdomen pelvis will be obtained to assess for diverticulitis, bowel obstruction, and perforation. Lab Data Attestation: I reviewed the patient's lab results. Lab results narrative: CBC was reviewed. There is a slight leukocytosis of 15.7. Hemoglobin was slightly elevated at 18.1. The remainder is within normal limits. Comprehensive metabolic profile was reviewed. Glucose was elevated at 381. Electrolytes were normal. Anion gap was normal at 14. CO2 was normal at 21. Lipase was reviewed and was normal at 31. Urinalysis was reviewed. Urine ketones were 150. Urine glucose was 1000. There is no evidence of urinary tract infection or hematuria. Serum acetone level was reviewed and was small. Labs: Laboratory Results - last 24 hr 05/30/23 05/30/23 03:53 04:00 WBC 15.7 H RBC 6.38 H Hgb 18.1 H* Hct 52.3 MCV 82.0 MCH 28.4 MCHC 34.6 RDW Std Deviation 36.1 RDW Coeff of [place] 12.2 Plt Count 225 MPV 10.4 Immature Gran % (Auto) 0.400 Neut % (Auto) 89.2 H Lymph % (Auto) 3.5 L [place] % (Auto) 5.5 Eos % (Auto) 0.6 Baso % (Auto) 0.8 Absolute Neuts (auto) 14.0 H Absolute Lymphs (auto) 0.55 L Nucleated RBC % 0 Sodium 138 Potassium 4.1 Chloride 103 Carbon Dioxide 21.0 Anion Gap 14 BUN 18 Creatinine 1.00 Estim Creat Clear Calc 130.72 Est GFR (MDRD) Af Amer 108 Est GFR (MDRD) Non-Af 89 BUN/Creatinine Ratio 18.0 Glucose 381 H Calcium 9.8 Total Bilirubin 1.00 AST 32 ALT 67 H Alkaline Phosphatase 124 H Total Protein 7.8 Albumin 4.4 Globulin 3.4 Albumin/Globulin Ratio 1.3 Lipase 31 Urine Color Yellow Urine Clarity Clear Urine pH 5.0 Ur Specific [place] 1.015 Urine Protein 15 H Urine Glucose (UA) 1000 H Urine Ketones 150 A* Urine Occult Blood Negative Urine Nitrite Negative Urine Bilirubin Negative Urine Urobilinogen Normal Ur Leukocyte Esterase Negative Urine RBC 0 SEEN Urine WBC 0 SEEN Ur Squamous Epith Cells 0 SEEN Urine Bacteria 0 SEEN Urine Mucus 0 SEEN Acetone Level SMALL H Radiography Diagnostic Testing: Clinical Impression(s) from Imaging Studies Abdomen/Pelvis CT 05/30/23 03:40 IMPRESSION: Findings concerning for mild infectious or inflammatory enteritis in the upper abdomen with associated ileus. Hepatic steatosis and hepatomegaly Moderate colonic stool. 8 mm indeterminate left adrenal nodule. Adrenal MRI characterization is recommended when clinically able. Electronically Signed: Butch Fletcher MD at 6:21 EDT , CT scan of the abdomen and pelvis was obtained. There is findings concerning for infectious or inflammatory enteritis in the upper abdomen and mild ileus. There is no other acute abnormality noted. This was interpreted by the radiologist and was also independently reviewed by myself. Treatment and Re-Evaluation :: Patient was given IV fluids and Zofran. Patient states he was feeling better but his nausea is starting to return. Patient is given a repeat dose of Zofran here. Patient was given prescriptions for Cipro and Flagyl. Patient was instructed to start with a liquid diet and small amounts of liquids more frequently. Patient was instructed to advance to a bland diet and then to a regular diet as he feels better. Patient was instructed to follow-up with his primary care physician in 3 to 5 days. Patient understood and was agreeable with the plan. All questions were answered. Discharge Plan Triage Chief Complaint: Nausea/Vomiting ED Provider: Alverto Vazquez Dx/Rx/DC Orders Clinical Impression: Bacterial enteritis, unspecified, DM2 (diabetes mellitus, type 2), Nausea and vomiting Instructions: ED Vomiting (Adult) Prescriptions: New metronidazole [metronidazole] 500 mg tablet 500 mg PO Q6H Qty: 40 0RF ciprofloxacin HCl [ciprofloxacin HCl] 500 mg tablet 500 mg PO BID Qty: 20 0RF No Action metformin 500 MG tablet 500 mg PO BIDCM lisinopril 5 MG tablet 5 mg PO DAILY buspirone 30 mg tablet 30 mg PO BID bupropion HCl 150 mg tablet extended release 24 hr 150 mg PO DAILY glimepiride 1 mg tablet 1 mg PO DAILY lamotrigine 200 mg tablet 200 mg PO DAILY lithium carbonate 450 mg tablet extended release 450 mg PO BID Primary Care Provider: Jabier Villar Referrals: Jabier Villar MD [Primary Care Provider] - 3-5 Days Disposition Disposition: Home, Self Care
[2023-05-30] MEDS: Ondansetron ODT 4 MG Tablet PO (03:27)
--- NOTE | 2023-05-30 03:40 | CT_ITS ---
INDICATION: Abdominal pain EXAMINATION: CT ABDOMEN AND PELVIS WITH CONTRAST - CT Abdomen And Pelvis W/ Contrast Injection TECHNIQUE: Helically acquired images were obtained of the abdomen and pelvis following IV contrast. A radiation dose optimization technique was used for this scan. IV Contrast dosage and agent: 100 mL [id number] Oral contrast: None. COMPARISON: None. FINDINGS: LOWER CHEST: Lung bases are clear. No cardiomegaly or pericardial effusion. LIVER: Hepatic steatosis and hepatomegaly. No focal mass. GALLBLADDER AND BILIARY TREE: No calcified gallstones. No gallbladder distension or wall edema. No intra- or extrahepatic biliary ductal dilation. PANCREAS: Partial fatty replacement.. SPLEEN: Homogeneous splenomegaly. ADRENAL GLANDS: 8 mm indeterminate left adrenal nodule axial image 45.. KIDNEYS AND URETERS: Normal renal size and position. No hydronephrosis. PERITONEUM: No ascites or free air. No other fluid collection. BOWEL: Fluid distention of the stomach without focal wall thickening or surrounding inflammation. Proximal small bowel distention to 3.3 cm with mild small bowel mesenteric stranding. Appendix is not seen. No right lower quadrant inflammation to suggest appendicitis. Moderate colonic stool burden. LYMPH NODES: No enlarged mesenteric or retroperitoneal lymph nodes. VESSELS: Aorta is non-dilated. URINARY BLADDER: Unremarkable. ABDOMINAL WALL: Small fat-containing umbilical and right inguinal hernia without inflammation. BONES: No lytic or blastic abnormality. CT/Abdomen/Pelvis W IV Cont ONLY IMPRESSION: Findings concerning for mild infectious or inflammatory enteritis in the upper abdomen with associated ileus. Hepatic steatosis and hepatomegaly Moderate colonic stool. 8 mm indeterminate left adrenal nodule. Adrenal MRI characterization is recommended when clinically able. Electronically Signed: Butch Fletcher MD at 6:21 EDT ,
[2023-05-30 03:49] VITALS: RESP 16
[2023-05-30 03:59] LABS: Bacteria 0 SEEN /hpf (None Seen); Mucous, Urine 0 SEEN /hpf (<or=2+); Red Blood Cells-Urine 0 SEEN /hpf (0-5); Squamous Epithelial Cells - UA 0 SEEN /hpf (0-5); White Blood Cells 0 SEEN /hpf (0-5)
[2023-05-30] MEDS: 0.9% Normal Saline (1000mL) 1,000 ML 1000 ML IV (03:59)
[2023-05-30] MEDS: Ondansetron 4 MG/2 ML Vial IV ×2 (03:59→06:52)
[2023-05-30 04:05] LABS: Color, Urine Yellow (Yellow); Glucose, Dipstick 1000 mg/dl (Normal); Leukocyte Esterase-Dipstick Negative /ul (Negative); Nitrite-Dipstick Negative (Negative); Occult Blood-Urine Negative /ul (Negative); Protein-Dipstick 15 mg/dl (Negative); Specific Gravity, Urine 1.015 (1.002-1.030); Urine Bilirubin Dipstick Negative (Negative); Urine Clarity Clear (Clear); Urine Urobilinogen Normal (Normal)
[2023-05-30 04:09] LABS: Absolute Lymphocyte Count 0.55 X10^3/uL (0.83-4.51); Basophil# 0.13 X10^3/uL; Basophil% 0.8 % (0-1); Eosinophil# 0.09 X10^3/uL; Eosinophils% 0.6 % (0-5); Hematocrit 52.3 % (40-54); Hemoglobin 18.1 g/dL (13.0-16.5); Lymphocyte # 0.55 X10^3/ul (0.83-4.51); Lymphocyte % 3.5 % (19-41); Mean Corp Hgb Conc 34.6 g/dL (32-36); Mean Corpuscular Hgb 28.4 pg (27.0-32.0); Mean Platelet Vol. 10.4 fl (6.2-12.0); Monocyte# 0.87 X10^3/uL; Monocyte% 5.5 % (0-10); NRBC Flagged by Analyzer 0 % (0-5); Neutrophil # 13.98 X10^3/uL (2.7-7.7); Neutrophil % 89.2 % (47-70); POSITIVE DIFFERENTIAL YES; Platelet Count 225 K/mm3 (150-450); RBC Distribution Width CV 12.2 % (11.6-14.6); RBC Distribution Width SD 36.1 fl (35.1-43.9); Red Blood Count 6.38 M/mm3 (4.6-6.2); White Blood Count 15.7 K/mm3 (4.4-11.0)
[2023-05-30 04:18] LABS: Ketone-Dipstick 150 mg/dl (Negative)
[2023-05-30 04:28] LABS: ALB/GLOB Ratio 1.3 RATIO (0.9-2.4); AST(SGOT) 32 U/L (15-37); Alanine Aminotransfer ALT/SGPT 67 U/L (16-61); Albumin, Serum 4.4 g/dL (3.2-5.0); Alkaline Phosphatase 124 U/L (45-117); Anion Gap 14 (5-15); BUN 18 mg/dL (7-18); Calcium,Total 9.8 mg/dL (8.5-10.1); Chloride 103 mmol/L (98-107); EST Glomerular Filtration Rate 89 mL/min (>60); Est Glom Filt Rate - Afr Amer 108 mL/min (>60); Estimated Creatinine Clearance 130.72 ml/min; Globulin 3.4 g/dL (2.2-4.2); Glucose 381 mg/dL (74-106); Lipase 31 U/L (13-75); Potassium 4.1 mmol/L (3.5-5.1); Protein, Total 7.8 g/dL (6.4-8.2); Sodium Level 138 mmol/L (136-145)
[2023-05-30] MEDS: Insulin Lispro 100 UNIT/ML INSULN.PEN 10 UNIT SC (05:03)
[2023-05-30 05:49] VITALS: BP 127/82; PULSE 126; TEMP 36.9; O2SAT 95
[2023-05-30 06:45] LABS: Bedside Glucose 340 mg/dL (74-106)
[2023-05-30 06:50] VITALS: BP 127/82; PULSE 92; RESP 19; TEMP 36.9; O2SAT 95
== END 2023-05-30 06:56 | disposition home or self-care (01) ==
PROVIDERS: Emergency Provider Emergency Medicine; PCP Family Medicine; Visit Provider Emergency Medicine
DX: A04.9 Bacterial intestinal infection, unspecified (principal); F31.9 Bipolar disorder, unspecified; K56.7 Ileus, unspecified; E11.9 Type 2 diabetes mellitus without complications; R11.2 Nausea with vomiting, unspecified; E66.9 Obesity, unspecified; F41.9 Anxiety disorder, unspecified; I10 Essential (primary) hypertension; F43.10 Post-traumatic stress disorder, unspecified
CPT/HCPCS: 74177; 80053; 81001; 82009; 82962; 83690; 85025; 96361; 96374; 99284; J7030; Q9967; A4216; J2405

== ENCOUNTER → 2023-12-27 | Outpatient (CLI) | payer OTHER, SELFPAY ==
[2023-12-27 11:15] LABS: Hematocrit 49.9 % (40-54); Hemoglobin 17.2 g/dL (13.0-16.5); Mean Corp Hgb Conc 34.5 g/dL (32-36); Mean Corpuscular Volume 84.1 fL (80-94); Mean Platelet Vol. 9.8 fl (6.2-12.0); Platelet Count 236 K/mm3 (150-450); RBC Distribution Width CV 12.2 % (11.6-14.6); RBC Distribution Width SD 36.9 fl (35.1-43.9); Red Blood Count 5.93 M/mm3 (4.6-6.2); White Blood Count 7.8 K/mm3 (4.4-11.0)
[2023-12-27 11:48] LABS: Vitamin B12 542 pg/mL (211-911); Vitamin D,25 Hydroxy 21.8 ng/mL
[2023-12-27 11:58] LABS: ALB/GLOB Ratio 1.4 RATIO (0.9-2.4); AST(SGOT) 50 U/L (15-37); Alanine Aminotransfer ALT/SGPT 76 U/L (16-61); Albumin, Serum 4.1 g/dL (3.2-5.0); Alkaline Phosphatase 89 U/L (45-117); Anion Gap 8 (5-15); BUN 14 mg/dL (7-18); BUN/Creat Ratio 14.5 RATIO (10-20); Calcium,Total 9.4 mg/dL (8.5-10.1); Chloride 101 mmol/L (98-107); Cholesterol 186 mg/dL (200); Creatinine, Serum 0.97 mg/dL (0.70-1.30); EST Glomerular Filtration Rate 92 mL/min (>60); Est Glom Filt Rate - Afr Amer 112 mL/min (>60); Glucose 250 mg/dL (74-106); High Density Lipoprotein 36 mg/dL; Potassium 4.4 mmol/L (3.5-5.1); Protein, Total 7.1 g/dL (6.4-8.2); Sodium Level 135 mmol/L (136-145); Thyroid Stim Hormone (TSH) 0.931 uIU/mL (0.358-3.740); Triglycerides 368 mg/dL; Very Low Density Lipoprotein 74 mg/dL (5-40)
== END | disposition home or self-care (01) ==
LOC: LAB 10:46
PROVIDERS: PCP Family Medicine
DX: R53.83 Other fatigue (principal); Z79.899 Other long term (current) drug therapy
CPT/HCPCS: 36415; 80053; 80061; 80178; 82306; 82607; 84443; 85027